=== PATIENT | female | born 1930 | race Hispanic/Latino ===

== ENCOUNTER 2017-08-18 12:52 | Emergency (ER) | payer MEDICARE, MEDICAID ==
[2017-08-18 13:22] VITALS: PULSE 74
[2017-08-18] MEDS ORDERED: Acetaminophen-Codeine 300/30 mg Tab PO STA (14:31)
[2017-08-18] MEDS ORDERED: Acetaminophen-Codeine 300/30 mg Tab PO ONE (14:48)
--- NOTE | 2017-08-18 15:11 | C.PDOC ---
History Of Present Illness 86 year old female presents to the ED for evaluation after she banged her foot and sustained an injury to her right foot one week ago. Patient has not yet been evaluated by her PMD. Patient states she lives alone and has trouble taking care of herself. She denies any other injuries and extremity numbness/ weakness at this time. Time Seen by Provider: 08/18/17 14:15 Chief Complaint (Nursing): Lower Extremity Problem/Injury History Per: Patient History/Exam Limitations: no limitations Onset/Duration Of Symptoms: Other (one week ) Current Symptoms Are (Timing): Still Present Additional History Per: Patient - Ankle/Foot Description Of Injury: Struck Against Object Past Medical History Reviewed: Historical Data, Nursing Documentation, Vital Signs Vital Signs: Last Vital Signs Temp 97.9 F 08/18/17 13:16 Pulse 74 08/18/17 13:16 Resp 18 08/18/17 13:16 BP 199/72 H 08/18/17 13:16 Pulse Ox 95 08/18/17 18:42 - Medical History PMH: Alzheimer's Disease, Arthritis, Diabetes, HTN Denies: Chronic Kidney Disease Surgical History: No Surg Hx Family History: States: Unknown Family Hx - Social History Hx Tobacco Use: No Hx Alcohol Use: No Hx Substance Use: No - Immunization History Hx Tetanus Toxoid Vaccination: No Hx Influenza Vaccination: Yes (2016) Hx Pneumococcal Vaccination: No Review Of Systems Musculoskeletal: Positive for: Foot Pain (right) Neurological: Negative for: Weakness, Numbness Physical Exam - Physical Exam Appears: Non-toxic, No Acute Distress Skin: Normal Color, Warm, Dry, Other (bed bugs present, excoriation wells noted. no cellulitis ) Extremity: Normal ROM, Tenderness (to first and second toes of right foot ), Capillary Refill (less than 2 seconds ), No Deformity, No Swelling Neurological/Psych: Oriented x3, Normal Speech, Normal Cognition Gait: Steady ED Course And Treatment - Laboratory Results Result Diagrams: 08/18/17 15:33 08/18/17 15:33 O2 Sat by Pulse Oximetry: 95 (on RA) Pulse Ox Interpretation: Normal Medical Decision Making Medical Decision Making: Assessment: foot injury, social issue Progress: Bloodwork, urinalysis, Right foot XR ordered and reviewed. Motrin PO and Tylenol/Codeine PO administered. On reassessment, patient is resting comfortably, showing no signs of distress and reports an improvement in symptoms. Patient's family member is present at bedside and states he will take her home. Patient will be discharged with diagnosis of contusion and bed bugs. Advised to f/u with PMD within 1-2 days for further evaluation. Disposition Counseled Patient/Family Regarding: Studies Performed, Diagnosis, Need For Followup, Rx Given - Disposition Referrals: Dilip Regalado MD [Staff Provider] - Disposition: HOME/ ROUTINE Disposition Time: 18:40 Condition: STABLE Additional Instructions: follow up with your doctor in 2 days call to make an appointment take medications as prescribed return to ER if symptoms worsens or progress Prescriptions: [place] 1% 1 appl TP ONCE #1 bottle Naproxen [Naprosyn] 500 mg PO BID PRN #16 tab PRN Reason: Pain, Moderate (4-7) Instructions: Contusion (DC), Bedbugs Forms: Gen Discharge Inst [place], [facility] ([place]), General Discharge Instructions, [facility] ([place]o) - Clinical Impression Clinical Impression: Contusion, Infestation by bed bug - Scribe Statement The provider has reviewed the documentation as recorded by the Scribe (Anne Franco) Provider Attestation: All medical record entries made by the Scribe were at my direction and personally dictated by me. I have reviewed the chart and agree that the record accurately reflects my personal performance of the history, physical exam, medical decision making, and the department course for this patient. I have also personally directed, reviewed, and agree with the discharge instructions and disposition.
[2017-08-18 15:39] LABS: BASO # 0.1 K/uL (0.0-0.2); BASO % 1.3 % (0.0-2.0); EOS # 0.4 K/uL (0.0-0.7); EOS % 5.4 % (0.0-4.0); HEMOGLOBIN 11.9 g/dL (11.0-16.0); LYMPH # 1.4 K/uL (1.0-4.3); MEAN CELL VOLUME 77.3 fL (81.0-99.0); MEAN CORPUSCULAR HEMOGLOBIN 25.3 pg (27.0-31.0); MEAN CORPUSCULAR HGB CONC 32.7 g/dL (33.0-37.0); MEAN PLATELET VOLUME 9.1 fL (7.2-11.7); MONO # 0.7 K/uL (0.0-0.8); MONO % 10.1 % (0.0-10.0); NEUT # 4.7 K/uL (1.8-7.0); NEUT % 64.2 % (50.0-75.0); RBC 4.7 Mil/uL (3.80-5.20); RED CELL DISTRIBUTION WIDTH 19.6 % (11.5-14.5); WHITE BLOOD COUNT 7.3 K/uL (4.8-10.8)
[2017-08-18 15:51] LABS: ALB/GLOB RATIO 1.1 (1.0-2.1); ALBUMIN 3.9 g/dL (3.5-5.0); CALCIUM 9.3 mg/dl (8.6-10.4)
--- NOTE | 2017-08-18 16:02 | RAD ---
PROCEDURE: Right Foot Radiographs. HISTORY: toe pain, 1st and 2nd COMPARISON: None. FINDINGS: BONES: There is diffuse bone demineralization. There is no acute displaced fracture or bone destruction. There is a prominent plantar calcaneal spur and dorsal calcaneal enthesophyte. JOINTS: Normal. SOFT TISSUES: Normal. OTHER FINDINGS: There are atherosclerotic vascular calcifications. IMPRESSION: No acute fracture or dislocation.
[2017-08-18 18:53] VITALS: BP 149/81; RESP 20; TEMP 97.5
[2017-08-21 10:52] VITALS: O2SAT 95
== END 2017-08-18 19:00 | disposition home or self-care (01) ==
LOC: C.ER 12:52
DX: S90.31XA Contusion of right foot, initial encounter (principal); W22.8XXA Striking against or struck by other objects, initial encounter; B88.8 Other specified infestations

== ENCOUNTER 2017-09-29 11:09 | Inpatient (IN) | payer MEDICARE, MEDICAID ==
[2017-09-29] MEDS ORDERED: Sodium Chloride 0.9% 500 ML IV ONE ×2 (13:09→14:04)
[2017-09-29] MEDS ORDERED: Cefepime 1 GM in Sodium Chloride 0.9% 50 ML IVPB STA (13:10)
[2017-09-29] MEDS ORDERED: Vancomycin 1 GM 1 GM/250 ML BAG IV STA ×2 (13:10→15:18)
[2017-09-29 13:31] LABS: BASO # 0.1 K/uL (0.0-0.2); BASO % 0.3 % (0.0-2.0); HEMOGLOBIN 12.6 g/dL (11.0-16.0); LYMPH # 0.8 K/uL (1.0-4.3); MEAN CELL VOLUME 79.7 fL (81.0-99.0); MEAN CORPUSCULAR HEMOGLOBIN 26.1 pg (27.0-31.0); MEAN CORPUSCULAR HGB CONC 32.7 g/dL (33.0-37.0); MEAN PLATELET VOLUME 9.9 fL (7.2-11.7); MONO # 1.2 K/uL (0.0-0.8); MONO % 7.5 % (0.0-10.0); NEUT # 14.6 K/uL (1.8-7.0); NEUT % 87.2 % (50.0-75.0); PLATELET COUNT 253 K/uL (130-400); RBC 4.85 Mil/uL (3.80-5.20); RED CELL DISTRIBUTION WIDTH 19.1 % (11.5-14.5); WHITE BLOOD COUNT 16.7 K/uL (4.8-10.8)
[2017-09-29 13:40] LABS: INR 1.1; PROTHROMBIN TIME 12.3 SECONDS (9.7-12.2)
[2017-09-29 13:52] LABS: ALB/GLOB RATIO 1.1 (1.0-2.1); ALBUMIN 4.4 g/dL (3.5-5.0); CALCIUM 9.5 mg/dl (8.6-10.4)
[2017-09-29 14:04] LABS: LYMPHOCYTE 5 % (20-40); MONOCYTE 7 % (0-10); NEUTROPHIL 88 % (50-75); PLATELET ESTIMATE NORMAL (NORMAL); TOTAL CELLS COUNTED 100
[2017-09-29] MEDS ORDERED: (Novolin R) Insulin Human Regular 100 units/ml vial IV ONE (14:04)
[2017-09-29 14:05] LABS: ANISOCYTOSIS SLIGHT; HYPOCHROMIC SLIGHT; POLYCHROMIC SLIGHT
--- NOTE | 2017-09-29 14:11 | C.PDOC ---
History Of Present Illness Patient BIBA for evaluation of left knee redness, swelling and pain after a fall. Patient is awake & alert, but disoriented to time. She thinks she fell when getting out of bed two days ago, but is unsure why or whether or not she has LOC/head injury. Time Seen by Provider: 09/29/17 13:03 Chief Complaint (Nursing): Lower Extremity Problem/Injury History Per: Patient, Other (EMS) History/Exam Limitations: other (AAOx2) Onset/Duration Of Symptoms: Unknown Current Symptoms Are (Timing): Still Present Severity: Moderate Past Medical History Reviewed: Historical Data, Nursing Documentation, Vital Signs Vital Signs: Last Vital Signs Temp 98.7 F 10/01/17 07:36 Pulse 97 H 10/01/17 07:36 Resp 20 10/01/17 07:36 BP 188/74 H 10/01/17 07:36 Pulse Ox 96 10/01/17 07:36 - Medical History PMH: Alzheimer's Disease, Arthritis, Diabetes, HTN Family History: States: No Known Family Hx - Social History Hx Tobacco Use: No Hx Alcohol Use: No Hx Substance Use: No - Immunization History Hx Tetanus Toxoid Vaccination: No Hx Influenza Vaccination: No Hx Pneumococcal Vaccination: No Review Of Systems Except As Marked, All Systems Reviewed And Found Negative. Cardiovascular: Negative for: Chest Pain Respiratory: Negative for: Shortness of Breath Gastrointestinal: Negative for: Nausea, Vomiting, Abdominal Pain Musculoskeletal: Positive for: Other (left knee pain, swelling, redness) Physical Exam - Physical Exam Appears: Well, Non-toxic, No Acute Distress Skin: Other (see extremity exam) Head: Atraumatic, Normacephalic Eye(s): bilateral: Normal Inspection, PERRL, EOMI Oral Mucosa: Dry Neck: Normal, Normal ROM, No Midline Cervical Tenderness, No Paracervical Tenderness, No Step Off Deformity, Supple Cardiovascular: Rhythm Regular Respiratory: Normal Breath Sounds, No Rales, No Rhonchi, No Wheezing Gastrointestinal/Abdominal: Normal Exam, Bowel Sounds, Soft, No Tenderness Extremity: Tenderness (left knee moderate swelling, diffuse erythema/cellulitis , scattered abrasions, (+) TTP, no calf tenderness), No Calf Tenderness, Swelling Pulses: Left Dorsalis Pedis: Normal, Right Dorsalis Pedis: Normal Neurological/Psych: Normal Motor, Normal Sensation, Other (awake, alert, AAOx2 ( disoriented to time)) ED Course And Treatment - Laboratory Results Result Diagrams: 10/01/17 08:12 10/01/17 08:12 ECG: Interpreted By Me, Viewed By Me (NSR 98 bpm, normal axis, no acute ST/T wave changes) ECG Interpretation: Normal O2 Sat by Pulse Oximetry: 98 (RA) Pulse Ox Interpretation: Normal - Other Rad left knee xray X-Ray: Interpreted by Me, Viewed By Me (soft tissue swelling, no fracture/ dislocation) - CT Scan/US CT HEAD Other Rad Studies (CT/US): Read By Radiologist, Radiology Report Reviewed CT/US Interpretation: Accession No. : [id number]. Patient Name / ID : DANE CALLAWAY / [id number]. Exam Date : 09/29/2017 14:32:14 ( Approved ). Study Comment : Sex / Age : F / 87Y. Creator : Emma Valencia. Dictator : Alexandria Villarreal MD. Patient Experience Coordinator : Manager Truck : Alexandria Villarreal MD. Approver2 : Report Date : 09/29/2017 14:38:28. My Comment : . PROCEDURE: CT HEAD WITHOUT CONTRAST. HISTORY: Altered mental status, s/p fall. COMPARISON: 10/20/2014. TECHNIQUE: Axial computed tomography images were obtained through the head/brain without intravenous contrast. Radiation dose: Total exam DLP = 760.46 MGy-cm. This CT exam was performed using one or more of the following dose reduction techniques: Automated exposure control, adjustment of the mA and/or kV according to patient size, and/or use of iterative reconstruction technique. FINDINGS: HEMORRHAGE: No intracranial hemorrhage. BRAIN: There are mild chronic microangiopathic changes. There is no mass, mass effect or abnormal extra-axial fluid collection. VENTRICLES: There is moderate age-related global parenchymal volume loss and proportionate enlargement of the ventricles and cortical sulci. CALVARIUM: The skull base and calvarium are normal. PARANASAL SINUSES: Predominantly clear. MASTOID AIR CELLS: Predominantly clear. OTHER FINDINGS: None. IMPRESSION: No acute intracranial abnormality. Mild chronic microangiopathic changes and moderate age-related global parenchymal volume loss. Progress Note: Blood work, Xrays of left knee and chest, CT head, UA ordered and reviewed. Patient given IV NS bolus, IV Vancomycin and IV Cefepime for cellulitis, IV insulin for hyperglycemia. Spoke with Dr. Begum, agrees with admission to his service for left leg cellulitis, poorly controlled DM. - Physician Consult Information Physician Contacted: Dilip Regalado Outcome Of Conversation: Spoke with PMD, confirms this is his patient, will admit to Dr. Begum (covers his service now). Disposition - Disposition Disposition: HOSPITALIZED Disposition Time: 15:28 Condition: STABLE - Clinical Impression Clinical Impression: Cellulitis of left knee, Recurrent falls, Uncontrolled diabetes mellitus, Leukocytosis Decision To Admit - Pt Status Changed To: Hospital Disposition Of: Inpatient - Admit Certification Admit to Inpatient:: After my assessment, the patient will require hospitalization for at least two midnights. This is because of the severity of symptoms shown, intensity of services needed, and/or the medical risk in this patient being treated as an outpatient. - InPatient: Physician Admission Certification: I certify that this patient requires 2 or more midnights of care for the following reason:: see notes - . Bed Request Type: Regular Admitting Physician: Shaun Begum Patient Diagnosis: Left leg cellulitis, Uncontrolled diabetes mellitus
[2017-09-29 14:17] LABS: URINE BACTERIA MANY (<OCC); URINE BILIRUBIN NEGATIVE (NEGATIVE); URINE BLOOD 2+ (NEGATIVE); URINE CLARITY Clear (Clear); URINE COLOR Yellow (YELLOW); URINE GLUCOSE (UA) 3+ mg/dL (Normal); URINE LEUKOCYTE ESTERASE NEG Leu/uL (Negative); URINE PROTEIN 2+ mg/dL (NEGATIVE); URINE UROBILINOGEN NORMAL mg/dL (0.2-1.0)
[2017-09-29] MEDS ORDERED: Sodium Chloride 0.9% 1,000 ML ONE (14:22)
[2017-09-29] MEDS ORDERED: Cefepime 1 GM in Sodium Chloride 0.9% 100 ML IVPB STA (14:22)
[2017-09-29] MEDS ORDERED: (Novolin R) Insulin Human Regular 100 units/ml vial ONE (14:23)
--- NOTE | 2017-09-29 14:34 | RAD ---
PROCEDURE: CHEST RADIOGRAPH, 1 VIEW HISTORY: admission COMPARISON: None available. FINDINGS: LUNGS: The lungs are well inflated and clear. There are chronic changes in the lungs. PLEURA: No pneumothorax or pleural fluid seen. CARDIOVASCULAR: Normal. OSSEOUS STRUCTURES: No significant abnormalities. VISUALIZED UPPER ABDOMEN: Normal. OTHER FINDINGS: None. IMPRESSION: No active pulmonary disease.
--- NOTE | 2017-09-29 14:36 | RAD ---
PROCEDURE: Left Knee Radiographs. HISTORY: Pain. COMPARISON: None. FINDINGS: BONES: There is diffuse bone demineralization. There is no acute displaced fracture or bone destruction. JOINTS: There is mild tricompartmental degenerative osteoarthrosis with reduced joint spaces, marginal spurring and tibial spiking, worse in the medial compartment. JOINT EFFUSION: There is a small suprapatellar joint effusion. OTHER FINDINGS: There is moderate prepatellar soft tissue swelling. There are atherosclerotic vascular calcifications. IMPRESSION: No acute fracture or dislocation. Mild tricompartmental degenerative osteoarthrosis, worse in the medial compartment and small suprapatellar joint effusion. Moderate prepatellar soft tissue swelling.
[2017-09-29] MEDS ORDERED: Vancomycin 1 gm/NS 200 ml 1 GM/200 ML BAG IVPB STA (15:18)
--- NOTE | 2017-09-29 15:18 | CT ---
PROCEDURE: CT HEAD WITHOUT CONTRAST. HISTORY: Altered mental status, s/p fall COMPARISON: 10/20/2014. TECHNIQUE: Axial computed tomography images were obtained through the head/brain without intravenous contrast. Radiation dose: Total exam DLP = 760.46 MGy-cm. This CT exam was performed using one or more of the following dose reduction techniques: Automated exposure control, adjustment of the mA and/or kV according to patient size, and/or use of iterative reconstruction technique. FINDINGS: HEMORRHAGE: No intracranial hemorrhage. BRAIN: There are mild chronic microangiopathic changes. There is no mass, mass effect or abnormal extra-axial fluid collection. VENTRICLES: There is moderate age-related global parenchymal volume loss and proportionate enlargement of the ventricles and cortical sulci. CALVARIUM: The skull base and calvarium are normal. PARANASAL SINUSES: Predominantly clear. MASTOID AIR CELLS: Predominantly clear. OTHER FINDINGS: None. IMPRESSION: No acute intracranial abnormality. Mild chronic microangiopathic changes and moderate age-related global parenchymal volume loss.
[2017-09-29] MEDS ORDERED: (Novolog) Insulin Aspart, Recombinant 100 u/ml 10 ml vial SC SCH (16:30)
[2017-09-29] MEDS ORDERED: (Novolog) Insulin Aspart, Recombinant 100 u/ml 10 ml vial ONE (16:55)
[2017-09-29] MEDS ORDERED: Enoxaparin 40 mg Syringe ONE (16:55)
[2017-09-29] MEDS: Enoxaparin 40 mg Syringe SC SCH (16:57)
[2017-09-29] MEDS: (Novolog) Insulin Aspart, Recombinant 100 u/ml 10 ml vial SC SCH (22:18)
[2017-09-29] MEDS ORDERED: ceFAZolin 1 GM in Sodium Chloride 0.9% 100 ML IVPB SCH (23:00)
[2017-09-30] MEDS ORDERED: ceFAZolin 1 GM in Sodium Chloride 0.9% 100 ML IVPB SCH
--- NOTE | 2017-09-30 00:16 | CP.PCM.HP ---
History of Present Illness - History of Present Illness History of Present Illness: 87 years old female felt out of bed 2 days ago and sustained a swollen and painful left knee. She is unsure whether she passed out or not. In the ED, she was found to have a leucocytosis and a blood glucose more than 400 mg%. She is known to have a DM, a HPTN, No other medical history could be obtained from the patient. CT scan of the head did not show any cerebral hemorrhage. Xray of the left revealed soft tissue swelling, no fracture, no dislocation. Present on Admission - Present on Admission Any Indicators Present on Admission: No Review of Systems - Musculoskeletal Additional comments: Swollen, erythematous and tender left knee. Past Patient History - Tetanus Immunizations Tetanus Immunization: Unknown - Past Medical History & Family History Past Medical History?: Yes - Past Social History Smoking Status: Never Smoked Alcohol: None Drugs: Denies - CARDIAC Hx Cardiac Disorders: Yes Hx Hypertension: Yes - PULMONARY Hx Respiratory Disorders: No - NEUROLOGICAL Hx Neurological Disorder: Yes Hx Alzheimer's Disease: Yes - HEENT Hx HEENT Problems: Yes Hx Blind: Yes (Legally Blind) - RENAL Hx Chronic Kidney Disease: No - ENDOCRINE/METABOLIC Hx Endocrine Disorders: Yes Hx Diabetes Mellitus Type 2: Yes - HEMATOLOGICAL/ONCOLOGICAL Hx Blood Disorders: No - INTEGUMENTARY Hx Dermatological Problems: No Other/Comment: left knee swollen and red - MUSCULOSKELETAL/RHEUMATOLOGICAL Hx Musculoskeletal Disorders: Yes Hx Falls: Yes (RECURRENT FALL AT HOME) - GASTROINTESTINAL Hx Gastrointestinal Disorders: No Other/Comment: problem with stomach - GENITOURINARY/GYNECOLOGICAL Hx Genitourinary Disorders: No Hx Incontinence: Yes - PSYCHIATRIC Hx Psychophysiologic Disorder: No Hx Substance Use: No - SURGICAL HISTORY Hx Surgeries: Yes Other/Comment: Cyst in the Ovary removed - 2008 - ANESTHESIA Hx Anesthesia: Yes Hx Anesthesia Reactions: No Hx Malignant Hyperthermia: No Has any member of the family had a problem w/ anesthesia?: No Meds Allergies/Adverse Reactions: Allergies Allergy/AdvReac Type Severity Reaction Status Date / Time No Known Allergies Allergy Verified 03/12/16 11:18 Physical Exam - Constitutional Appears: No Acute Distress - Head Exam Head Exam: NORMAL INSPECTION - Eye Exam Eye Exam: Normal appearance - ENT Exam ENT Exam: Normal Exam - Neck Exam Neck exam: Positive for: Normal Inspection - Respiratory Exam Respiratory Exam: Clear to Auscultation Bilateral, NORMAL BREATHING PATTERN - Cardiovascular Exam Cardiovascular Exam: REGULAR RHYTHM - GI/Abdominal Exam GI & Abdominal Exam: Normal Bowel Sounds, Soft - Rectal Exam Rectal Exam: Deferred - Extremities Exam Additional comments: Tender, erythematous and swollen left knee. - Back Exam Back exam: NORMAL INSPECTION - Neurological Exam Neurological exam: Alert, Oriented x3 - Psychiatric Exam Psychiatric exam: Anxious Results - Vital Signs Recent Vital Signs: Last Vital Signs Temp 98.9 F 09/29/17 17:58 Pulse 81 09/29/17 17:58 Resp 20 09/29/17 17:58 BP 159/68 H 09/29/17 17:58 Pulse Ox 97 09/29/17 17:58 - Labs Result Diagrams: 09/29/17 13:27 09/29/17 13:27 Labs: Laboratory Results - last 24 hr 09/29/17 09/29/17 09/29/17 11:37 11:40 13:27 WBC 16.7 H D RBC 4.85 Hgb 12.6 Hct 38.7 MCV 79.7 L D MCH 26.1 L MCHC 32.7 L RDW 19.1 H Plt Count 253 MPV 9.9 Neut % (Auto) 87.2 H Lymph % (Auto) 5.0 L [place] % (Auto) 7.5 Eos % (Auto) 0.0 Baso % (Auto) 0.3 Neut # (Auto) 14.6 H Lymph # (Auto) 0.8 L [place] # (Auto) 1.2 H Eos # (Auto) 0.0 Baso # (Auto) 0.1 Neutrophils % (Manual) 88 H Lymphocytes % (Manual) 5 L Monocytes % (Manual) 7 Platelet Estimate Normal Polychromasia Slight Hypochromasia (manual) Slight Anisocytosis (manual) Slight PT INR APTT Sodium Potassium Chloride Carbon Dioxide Anion Gap BUN Creatinine Est GFR ( Amer) Est GFR (Non-Af Amer) POC Glucose (mg/dL) 454 H* 463 H* Random Glucose Calcium Total Bilirubin AST ALT Alkaline Phosphatase Total Protein Albumin Globulin Albumin/Globulin Ratio Urine Color Urine Clarity Urine pH Ur Specific [place] Urine Protein Urine Glucose (UA) Urine Ketones Urine Blood Urine Nitrate Urine Bilirubin Urine Urobilinogen Ur Leukocyte Esterase Urine WBC (Auto) Urine RBC (Auto) Urine Bacteria 09/29/17 09/29/17 09/29/17 13:27 13:27 14:04 WBC RBC Hgb Hct MCV MCH MCHC RDW Plt Count MPV Neut % (Auto) Lymph % (Auto) [place] % (Auto) Eos % (Auto) Baso % (Auto) Neut # (Auto) Lymph # (Auto) [place] # (Auto) Eos # (Auto) Baso # (Auto) Neutrophils % (Manual) Lymphocytes % (Manual) Monocytes % (Manual) Platelet Estimate Polychromasia Hypochromasia (manual) Anisocytosis (manual) PT 12.3 H INR 1.1 APTT 33 Sodium 136 Potassium 4.1 Chloride 90 L Carbon Dioxide 26 Anion Gap 23 H BUN 25 H Creatinine 1.2 Est GFR ( Amer) 52 Est GFR (Non-Af Amer) 43 POC Glucose (mg/dL) Random Glucose 472 H* D Calcium 9.5 Total Bilirubin 0.8 AST 28 ALT 10 Alkaline Phosphatase 78 Total Protein 8.5 H Albumin 4.4 Globulin 4.1 H Albumin/Globulin Ratio 1.1 Urine Color Yellow Urine Clarity Clear Urine pH 5.0 Ur Specific [place] 1.024 Urine Protein 2+ H Urine Glucose (UA) 3+ H Urine Ketones 1+ H Urine Blood 2+ H Urine Nitrate Negative Urine Bilirubin Negative Urine Urobilinogen Normal Ur Leukocyte Esterase Neg Urine WBC (Auto) 3 Urine RBC (Auto) 6 H Urine Bacteria Many H 09/29/17 09/29/17 09/29/17 16:03 18:02 21:08 WBC RBC Hgb Hct MCV MCH MCHC RDW Plt Count MPV Neut % (Auto) Lymph % (Auto) [place] % (Auto) Eos % (Auto) Baso % (Auto) Neut # (Auto) Lymph # (Auto) [place] # (Auto) Eos # (Auto) Baso # (Auto) Neutrophils % (Manual) Lymphocytes % (Manual) Monocytes % (Manual) Platelet Estimate Polychromasia Hypochromasia (manual) Anisocytosis (manual) PT INR APTT Sodium Potassium Chloride Carbon Dioxide Anion Gap BUN Creatinine Est GFR ( Amer) Est GFR (Non-Af Amer) POC Glucose (mg/dL) 338 H 280 H 227 H Random Glucose Calcium Total Bilirubin AST ALT Alkaline Phosphatase Total Protein Albumin Globulin Albumin/Globulin Ratio Urine Color Urine Clarity Urine pH Ur Specific [place] Urine Protein Urine Glucose (UA) Urine Ketones Urine Blood Urine Nitrate Urine Bilirubin Urine Urobilinogen Ur Leukocyte Esterase Urine WBC (Auto) Urine RBC (Auto) Urine Bacteria Assessment & Plan (1) Cellulitis of knee, left Assessment and Plan: Patient was started on IV Vancomycin and Cefepime in the ED. Status: Acute (2) Uncontrolled diabetes mellitus Assessment and Plan: To control blood glucose with Insulin Aspartate according to Accucheck results. Status: Acute (3) Uncontrolled hypertension Assessment and Plan: To start Losartan 50 mg PO qd. Status: Acute (4) Fall Status: Acute (5) Contusion of knee, left Status: Acute Decision To Admit - Pt Status Changed To: Hospital Disposition Of: Inpatient - Admit Certification Admit to Inpatient:: After my assessment, the patient will require hospitalization for at least two midnights. This is because of the severity of symptoms shown, intensity of services needed, and/or the medical risk in this patient being treated as an outpatient. - InPatient: Physician Admission Certification:: After my assessments, the patient requires hospitalization for at 2 midnights. - . Bed Request Type: Regular Admitting Physician: Shaun Begum
[2017-09-30] MEDS: ceFAZolin 2 GM in Sodium Chloride 0.9% 100 ML IVPB SCH ×2 (05:13→13:27)
[2017-09-30 07:33] LABS: BASO # 0.1 K/uL (0.0-0.2); BASO % 0.5 % (0.0-2.0); EOS % 0.3 % (0.0-4.0); HEMOGLOBIN 11.3 g/dL (11.0-16.0); LYMPH # 1.2 K/uL (1.0-4.3); LYMPH % 8.6 % (20.0-40.0); MEAN CELL VOLUME 79.3 fL (81.0-99.0); MEAN CORPUSCULAR HEMOGLOBIN 26.1 pg (27.0-31.0); MEAN CORPUSCULAR HGB CONC 32.9 g/dL (33.0-37.0); MEAN PLATELET VOLUME 9.5 fL (7.2-11.7); MONO # 1.2 K/uL (0.0-0.8); MONO % 8.4 % (0.0-10.0); NEUT % 82.2 % (50.0-75.0); NRBC % 0.1 % (0.0-2.0); PLATELET COUNT 217 K/uL (130-400); RBC 4.32 Mil/uL (3.80-5.20); RED CELL DISTRIBUTION WIDTH 18.7 % (11.5-14.5); WHITE BLOOD COUNT 14.6 K/uL (4.8-10.8)
[2017-09-30] MEDS: (Novolog) Insulin Aspart, Recombinant 100 u/ml 10 ml vial SC SCH ×3 (08:23→16:30)
[2017-09-30 08:46] LABS: ANISOCYTOSIS SLIGHT; BASOPHIL 1 % (0-2); HYPOCHROMIC SLIGHT; LYMPHOCYTE 6 % (20-40); MONOCYTE 9 % (0-10); NEUTROPHIL 84 % (50-75); PLATELET ESTIMATE NORMAL (NORMAL); POIKILOCYTOSIS SLIGHT; TOTAL CELLS COUNTED 100
[2017-09-30 08:47] LABS: LARGE PLATELETS PRESENT; OVALOCYTES SLIGHT; TARGET CELLS SLIGHT
[2017-09-30] MEDS: Vancomycin 1 gm/NS 200 ml 1 GM/200 ML BAG IVPB SCH (09:51)
[2017-09-30] MEDS: Enoxaparin 40 mg Syringe SC SCH (09:52)
--- NOTE | 2017-09-30 11:36 | CP.PCM.CON ---
History of Present Illness - History of Present Illness History of Present Illness: Patient BIBA for evaluation of left knee redness, swelling and pain after a fall. Patient is awake & alert, but disoriented to time. She thinks she fell when getting out of bed two days ago, but is unsure why or whether or not she has LOC/head injury. fell at home injuring left knee - severe painful swelling r/o abscess r/o septic joint IV rx in progress Needs imaging elizabeth as well as ortho eval add ancef to [facility] - Medical History PMH: Alzheimer's Disease, Arthritis, Diabetes, HTN Family History: States: No Known Family Hx Review of Systems - Constitutional Constitutional: As Per HPI - EENT Eyes: absent: As Per HPI, Blind Spots, Blurred Vision, Change in Vision, Decreased Night Vision, Diplopia, Discharge, Dry Eye, Exophthalmos, Floaters, Irritation, Itchy Eyes, Loss of Peripheral Vision, Pain, Photophobia, Requires Corrective Lenses, Sees Flashes, Spots in Vision, Tunnel Vision, Other Visual Disturbances, Loss of Vision, Other Ears: absent: As Per HPI, Decreased Hearing, Ear Discharge, Ear Pain, Tinnitus, Abnormal Hearing, Disequilibrium, Dizziness, Other Nose/Mouth/Throat: absent: As Per HPI, Epistaxis, Nasal Congestion, Nasal Discharge, Nasal Obstruction, Nasal Trauma, Nose Pain, Post Nasal Drip, Sinus Pain, Sinus Pressure, Bleeding Gums, Change in Voice, Dental Pain, Dry Mouth, Dysphagia, Halitosis, Hoarsness, Lip Swelling, Mouth Lesions, Mouth Pain, Odynophagia, Sore Throat, Throat Swelling, Tongue Swelling, Facial Pain, Neck Pain, Neck Mass, Other - Breasts Breasts: absent: As Per HPI, Change in Shape, Mass, Pain, Nipple Discharge, Nipple Inversion, Skin Changes, Swelling, Other - Cardiovascular Cardiovascular: absent: As Per HPI, Acrocyanosis, Chest Pain, Chest Pain at Rest , Chest Pain with Activity, Claudication, Diaphoresis, Dyspnea, Dyspnea on Exertion, Edema, Irregular Heart Rhythm, Pain Radiating to Arm/Neck/Jaw, Leg Edema, Leg Ulcers, Lightheadedness, Orthopnea, Palpitations, Paroxysmal Nocturnal Dyspnea, Pedal Edema, Radiating Pain, Rapid Heart Rate, Slow Heart Rate, Syncope, Other - Respiratory Respiratory: absent: As Per HPI, Cough, Dyspnea, Hemoptysis, Dyspnea on Exertion , Wheezing, Snoring, Stridor, Pain on Inspiration, Chest Congestion, Excessive Mucous Production, Change in Mucous Color, Pain with Coughing, Other - Gastrointestinal Gastrointestinal: absent: As Per HPI, Abdominal Pain, Belching, Bloating, Change in Bowel Habits, Change in Stool Character, Coffee Ground Emesis, Constipation, Cramping, Diarrhea, Dyspepsia, Dysphagia, Early Satiety, Excessive Flatus, Fecal Incontinence, Heartburn, Hematemesis, Hematochezia, Loose Stools, Melena, Nausea, Odynophagia, Temesmus, Vomiting, Other - Genitourinary Genitourinary: absent: As Per HPI, Change in Urinary Stream, Difficulty Urinating, Dysuria, Flank Pain, Hematuria, Pyuria, Nocturia, Urinary Incontinence, Urinary Frequency, Urinary Hesitance, Urinary Urgency, Voiding Freq/Small Amts, Freq UTI, Hx Renal/Bladder Calculi, Hx /Renal Surgery, Bladder Distension, Other - Reproductive: Female Reproductive:Female: absent: As Per HPI, Amenorrhea, Amenorrhea/ Control, Currently Menstual, Cycle <21 Days, Cycle >35 Days, Cycle Variable, Menses 1-7 Days, Menses >/= 8 Days, Menses Variable, Cycle > 4 Weeks Between, No Menses for 6 Months, Heavy Menses, Light Menses, Normal Menses, Spotting Between Cycles , S/P Hysterectomy, Menopausal, Post Menopausal, Premenarche, Abnormal Vaginal Bleeding, Dysmenorrhea, Dyspareunia, Genital Lesions, Genital Pruritis, Pelvic Pain, Prolapse Symptoms, Sexual Dysfunction, Vaginal Discharge, Vaginal Dryness , Vaginal Odor, Vaginal Pruritis, Other - Menstruation Menstruation: absent: As Per HPI, Amenorrhea, Amenorrhea/ Control, Currently Menstual, Cycle <21 Days, Cycle >35 Days, Cycle Variable, Menses 1-7 Days, Menses >/= 8 Days, Menses Variable, Cycle > 4 Weeks Between, No Menses for 6 Months, Heavy Menses, Light Menses, Normal Menses, Spotting Between Cycles , S/P Hysterectomy, Menopausal, Post Menopausal, Premenarche, Abnormal Vaginal Bleeding, Dysmenorrhea, Other - Musculoskeletal Musculoskeletal: As Per HPI - Integumentary Integumentary: As Per HPI, Skin Pain, Swelling, Wounds - Neurological Neurological: absent: As Per HPI, Abnormal Gait, Abnormal Hearing, Abnormal Movements, Abnormal Speech, Behavioral Changes, Burning Sensations, Confusion, Convulsions, Disequilibrium, Dizziness, Numbness, Focal Weakness, Frequent Falls , Headaches, Lack of Coordination, Loss of Vision, Memory Loss, Paresthesias, Radicular Pain, Restless Legs, Sensory Deficit, Syncope, Tingling, Tremor, Vertigo, Weakness, Other Visual Disturbances, Other - Psychiatric Psychiatric: absent: As Per HPI, Abnormal Sleep Pattern, Anhedonia, Anxiety, Auditory Hallucinations, Behavioral Changes, Change in Appetite, Change in Libido, Confusion, Depression, Difficulty Concentrating, Hallucinations, Homicidal Ideation, Hopelessness, Irritability, Memory Loss, Mood Swings, Panic Attacks, Paranoia, Suicidal Ideation, Visual Hallucinations, Tactile Hallucinations, Other - Endocrine Endocrine: absent: As Per HPI, Change in Body Appearance, Change in Libido, Cold Intolorance, Deepening of Voice, Excessive Sweating, Fatigue, Flushing, Heat Intolorance, Increase in Ring/Shoe/Hat Size, Palpitations, Polydipsia, Polyphagia, Polyuria, Other - Hematologic/Lymphatic Hematologic: absent: As Per HPI, Easy Bleeding, Easy Bruising, Lymphadenopathy, Other Past Patient History - Tetanus Immunizations Tetanus Immunization: Unknown - Past Medical History & Family History Past Medical History?: Yes - Past Social History Smoking Status: Never Smoked Alcohol: None Drugs: Denies - CARDIAC Hx Cardiac Disorders: Yes Hx Hypertension: Yes - PULMONARY Hx Respiratory Disorders: No - NEUROLOGICAL Hx Neurological Disorder: Yes Hx Alzheimer's Disease: Yes - HEENT Hx HEENT Problems: Yes Hx Blind: Yes (Legally Blind) - RENAL Hx Chronic Kidney Disease: No - ENDOCRINE/METABOLIC Hx Endocrine Disorders: Yes Hx Diabetes Mellitus Type 2: Yes - HEMATOLOGICAL/ONCOLOGICAL Hx Blood Disorders: No - INTEGUMENTARY Hx Dermatological Problems: No Other/Comment: left knee swollen and red - MUSCULOSKELETAL/RHEUMATOLOGICAL Hx Musculoskeletal Disorders: Yes Hx Falls: Yes (RECURRENT FALL AT HOME) - GASTROINTESTINAL Hx Gastrointestinal Disorders: No Other/Comment: problem with stomach - GENITOURINARY/GYNECOLOGICAL Hx Genitourinary Disorders: No Hx Incontinence: Yes - PSYCHIATRIC Hx Psychophysiologic Disorder: No Hx Substance Use: No - SURGICAL HISTORY Hx Surgeries: Yes Other/Comment: Cyst in the Ovary removed - 2008 - ANESTHESIA Hx Anesthesia: Yes Hx Anesthesia Reactions: No Hx Malignant Hyperthermia: No Has any member of the family had a problem w/ anesthesia?: No Meds Allergies/Adverse Reactions: Allergies Allergy/AdvReac Type Severity Reaction Status Date / Time No Known Allergies Allergy Verified 03/12/16 11:18 - Medications Medications: Current Medications Acetaminophen (Tylenol 325mg Tab) 650 mg PO Q6 PRN PRN Reason: Pain, moderate (4-7) Last Admin: 09/30/17 08:22 Dose: 650 mg Docusate Sodium (Colace) 100 mg PO BID [facility] Last Admin: 09/30/17 09:52 Dose: 100 mg Enoxaparin Sodium (Lovenox) 40 mg SC DAILY [facility] Last Admin: 09/30/17 09:52 Dose: 40 mg Hydromorphone HCl (Dilaudid) 0.5 mg IVP Q4H PRN PRN Reason: Pain, severe (8-10) Vancomycin/Sodium Chloride (Vancomycin 1 Gm/Ns 200 Ml) 1 gm in 200 mls @ 133 mls/hr IVPB Q24H PUJA PRN Reason: Protocol Stop: 10/05/17 10:01 Last Admin: 09/30/17 09:51 Dose: 133 mls/hr Cefazolin Sodium 2 gm/ Sodium (Chloride) 100 mls @ 100 mls/hr IVPB Q8 PUJA PRN Reason: Protocol Last Admin: 09/30/17 05:13 Dose: 100 mls/hr Insulin Aspart (Novolog) 0 unit SC ACHS PUJA PRN Reason: Protocol Last Admin: 09/30/17 08:23 Dose: 4 unit Losartan Potassium (Cozaar) 50 mg PO DAILY [facility] Last Admin: 09/30/17 09:52 Dose: 50 mg Pneumococcal Polyvalent Vaccine (Pneumovax 23 Vaccine) 0.5 ml IM .ONCE ONE Stop: 10/02/17 10:01 Physical Exam - Constitutional Appears: Non-toxic, Chronically Ill - Head Exam Head Exam: NORMOCEPHALIC - Eye Exam Eye Exam: PERRL - ENT Exam ENT Exam: Mucous Membranes Dry, Normal External Ear Exam - Neck Exam Neck exam: Negative for: Lymphadenopathy - Respiratory Exam Respiratory Exam: Decreased Breath Sounds - Cardiovascular Exam Cardiovascular Exam: REGULAR RHYTHM - GI/Abdominal Exam GI & Abdominal Exam: Diminished Bowel Sounds, Soft. absent: Tenderness - Rectal Exam Rectal Exam: Deferred - Exam Exam: NORMAL INSPECTION - Extremities Exam Extremities exam: Positive for: joint swelling, pedal edema, tenderness. Negative for: calf tenderness, normal inspection, pedal pulses present Additional comments: redness and swelling left knee with possibla abscess - Back Exam Back exam: absent: CVA tenderness (L), CVA tenderness (R) - Neurological Exam Neurological exam: Alert, CN II-XII Intact, Oriented x3, Reflexes Normal - Psychiatric Exam Psychiatric exam: Depressed - Skin Skin Exam: Dry Results - Vital Signs Recent Vital Signs: Last Vital Signs Temp 98.6 F 09/30/17 08:00 Pulse 87 09/30/17 08:00 Resp 20 09/30/17 08:00 BP 167/72 H 09/30/17 08:00 Pulse Ox 96 09/30/17 08:00 - Labs Result Diagrams: 10/01/17 08:12 10/01/17 08:12 Labs: Laboratory Results - last 24 hr 09/29/17 09/29/17 09/29/17 11:37 11:40 13:27 WBC 16.7 H D RBC 4.85 Hgb 12.6 Hct 38.7 MCV 79.7 L D MCH 26.1 L MCHC 32.7 L RDW 19.1 H Plt Count 253 MPV 9.9 Neut % (Auto) 87.2 H Lymph % (Auto) 5.0 L [place] % (Auto) 7.5 Eos % (Auto) 0.0 Baso % (Auto) 0.3 Neut # (Auto) 14.6 H Lymph # (Auto) 0.8 L [place] # (Auto) 1.2 H Eos # (Auto) 0.0 Baso # (Auto) 0.1 Neutrophils % (Manual) 88 H Lymphocytes % (Manual) 5 L Monocytes % (Manual) 7 Basophils % (Manual) Platelet Estimate Normal Large Platelets Polychromasia Slight Hypochromasia (manual) Slight Poikilocytosis (manual Anisocytosis (manual) Slight Target Cells Ovalocytes PT INR APTT Sodium Potassium Chloride Carbon Dioxide Anion Gap BUN Creatinine Est GFR ( Amer) Est GFR (Non-Af Amer) POC Glucose (mg/dL) 454 H* 463 H* Random Glucose Hemoglobin A1c Calcium Total Bilirubin AST ALT Alkaline Phosphatase Total Protein Albumin Globulin Albumin/Globulin Ratio Urine Color Urine Clarity Urine pH Ur Specific [place] Urine Protein Urine Glucose (UA) Urine Ketones Urine Blood Urine Nitrate Urine Bilirubin Urine Urobilinogen Ur Leukocyte Esterase Urine WBC (Auto) Urine RBC (Auto) Urine Bacteria 09/29/17 09/29/17 09/29/17 13:27 13:27 14:04 WBC RBC Hgb Hct MCV MCH MCHC RDW Plt Count MPV Neut % (Auto) Lymph % (Auto) [place] % (Auto) Eos % (Auto) Baso % (Auto) Neut # (Auto) Lymph # (Auto) [place] # (Auto) Eos # (Auto) Baso # (Auto) Neutrophils % (Manual) Lymphocytes % (Manual) Monocytes % (Manual) Basophils % (Manual) Platelet Estimate Large Platelets Polychromasia Hypochromasia (manual) Poikilocytosis (manual Anisocytosis (manual) Target Cells Ovalocytes PT 12.3 H INR 1.1 APTT 33 Sodium 136 Potassium 4.1 Chloride 90 L Carbon Dioxide 26 Anion Gap 23 H BUN 25 H Creatinine 1.2 Est GFR ( Amer) 52 Est GFR (Non-Af Amer) 43 POC Glucose (mg/dL) Random Glucose 472 H* D Hemoglobin A1c Calcium 9.5 Total Bilirubin 0.8 AST 28 ALT 10 Alkaline Phosphatase 78 Total Protein 8.5 H Albumin 4.4 Globulin 4.1 H Albumin/Globulin Ratio 1.1 Urine Color Yellow Urine Clarity Clear Urine pH 5.0 Ur Specific [place] 1.024 Urine Protein 2+ H Urine Glucose (UA) 3+ H Urine Ketones 1+ H Urine Blood 2+ H Urine Nitrate Negative Urine Bilirubin Negative Urine Urobilinogen Normal Ur Leukocyte Esterase Neg Urine WBC (Auto) 3 Urine RBC (Auto) 6 H Urine Bacteria Many H 09/29/17 09/29/17 09/29/17 16:03 18:02 21:08 WBC RBC Hgb Hct MCV MCH MCHC RDW Plt Count MPV Neut % (Auto) Lymph % (Auto) [place] % (Auto) Eos % (Auto) Baso % (Auto) Neut # (Auto) Lymph # (Auto) [place] # (Auto) Eos # (Auto) Baso # (Auto) Neutrophils % (Manual) Lymphocytes % (Manual) Monocytes % (Manual) Basophils % (Manual) Platelet Estimate Large Platelets Polychromasia Hypochromasia (manual) Poikilocytosis (manual Anisocytosis (manual) Target Cells Ovalocytes PT INR APTT Sodium Potassium Chloride Carbon Dioxide Anion Gap BUN Creatinine Est GFR ( Amer) Est GFR (Non-Af Amer) POC Glucose (mg/dL) 338 H 280 H 227 H Random Glucose Hemoglobin A1c Calcium Total Bilirubin AST ALT Alkaline Phosphatase Total Protein Albumin Globulin Albumin/Globulin Ratio Urine Color Urine Clarity Urine pH Ur Specific [place] Urine Protein Urine Glucose (UA) Urine Ketones Urine Blood Urine Nitrate Urine Bilirubin Urine Urobilinogen Ur Leukocyte Esterase Urine WBC (Auto) Urine RBC (Auto) Urine Bacteria 09/30/17 09/30/17 09/30/17 07:02 07:02 07:03 WBC 14.6 H RBC 4.32 Hgb 11.3 Hct 34.2 MCV 79.3 L MCH 26.1 L MCHC 32.9 L RDW 18.7 H Plt Count 217 MPV 9.5 Neut % (Auto) 82.2 H Lymph % (Auto) 8.6 L [place] % (Auto) 8.4 Eos % (Auto) 0.3 Baso % (Auto) 0.5 Neut # (Auto) 12.0 H Lymph # (Auto) 1.2 [place] # (Auto) 1.2 H Eos # (Auto) 0.0 Baso # (Auto) 0.1 Neutrophils % (Manual) 84 H Lymphocytes % (Manual) 6 L Monocytes % (Manual) 9 Basophils % (Manual) 1 Platelet Estimate Normal Large Platelets Present Polychromasia Hypochromasia (manual) Slight Poikilocytosis (manual Slight Anisocytosis (manual) Slight Target Cells Slight Ovalocytes Slight PT INR APTT Sodium Potassium Chloride Carbon Dioxide Anion Gap BUN Creatinine Est GFR ( Amer) Est GFR (Non-Af Amer) POC Glucose (mg/dL) 281 H Random Glucose Hemoglobin A1c 7.8 H Calcium Total Bilirubin AST ALT Alkaline Phosphatase Total Protein Albumin Globulin Albumin/Globulin Ratio Urine Color Urine Clarity Urine pH Ur Specific [place] Urine Protein Urine Glucose (UA) Urine Ketones Urine Blood Urine Nitrate Urine Bilirubin Urine Urobilinogen Ur Leukocyte Esterase Urine WBC (Auto) Urine RBC (Auto) Urine Bacteria 09/30/17 11:02 WBC RBC Hgb Hct MCV MCH MCHC RDW Plt Count MPV Neut % (Auto) Lymph % (Auto) [place] % (Auto) Eos % (Auto) Baso % (Auto) Neut # (Auto) Lymph # (Auto) [place] # (Auto) Eos # (Auto) Baso # (Auto) Neutrophils % (Manual) Lymphocytes % (Manual) Monocytes % (Manual) Basophils % (Manual) Platelet Estimate Large Platelets Polychromasia Hypochromasia (manual) Poikilocytosis (manual Anisocytosis (manual) Target Cells Ovalocytes PT INR APTT Sodium Potassium Chloride Carbon Dioxide Anion Gap BUN Creatinine Est GFR ( Amer) Est GFR (Non-Af Amer) POC Glucose (mg/dL) 358 H Random Glucose Hemoglobin A1c Calcium Total Bilirubin AST ALT Alkaline Phosphatase Total Protein Albumin Globulin Albumin/Globulin Ratio Urine Color Urine Clarity Urine pH Ur Specific [place] Urine Protein Urine Glucose (UA) Urine Ketones Urine Blood Urine Nitrate Urine Bilirubin Urine Urobilinogen Ur Leukocyte Esterase Urine WBC (Auto) Urine RBC (Auto) Urine Bacteria Assessment & Plan (1) Cellulitis of knee, left Status: Acute (2) Contusion of knee, left Status: Acute (3) Septic prepatellar bursitis of left knee Status: Acute (4) Uncontrolled diabetes mellitus Status: Acute (5) Uncontrolled hypertension Status: Acute - Assessment and Plan (Free Text) Assessment: await I and D IV antibiotics and imaging ordered
[2017-09-30] MEDS: HYDROmorphone 0.5 mg/0.5 ml ISec IVP PRN (13:26)
--- NOTE | 2017-09-30 14:00 | CP.PCM.CON ---
History of Present Illness - History of Present Illness History of Present Illness: Orthopedic consultation Dr. Roger 87F complains of left knee pain for a couple days after fall. Patient doesn't remember what day it is, but knows it is September and that she is in [facility], so exact duration unknown. She denies knee pain prior to this episode. Denies pain in other joints. Denies gout. +DM Review of Systems - Review of Systems All systems: reviewed and no additional remarkable complaints except Review of Systems: denies fever chills - Cardiovascular Additional comments: no cp - Respiratory Additional comments: n oSOB - Musculoskeletal Musculoskeletal: As Per HPI - Integumentary Integumentary: As Per HPI - Neurological Additional comments: +falls no dizziness Past Patient History - Tetanus Immunizations Tetanus Immunization: Unknown - Past Medical History & Family History Past Medical History?: Yes Past Family History: Reviewed and not pertinent - Past Social History Smoking Status: Never Smoked Alcohol: None Drugs: Denies - CARDIAC Hx Cardiac Disorders: Yes Hx Hypertension: Yes - PULMONARY Hx Respiratory Disorders: No - NEUROLOGICAL Hx Neurological Disorder: Yes Hx Alzheimer's Disease: Yes - HEENT Hx HEENT Problems: Yes Hx Blind: Yes (Legally Blind) - RENAL Hx Chronic Kidney Disease: No - ENDOCRINE/METABOLIC Hx Endocrine Disorders: Yes Hx Diabetes Mellitus Type 2: Yes - HEMATOLOGICAL/ONCOLOGICAL Hx Blood Disorders: No - INTEGUMENTARY Hx Dermatological Problems: No Other/Comment: left knee swollen and red - MUSCULOSKELETAL/RHEUMATOLOGICAL Hx Musculoskeletal Disorders: Yes Hx Falls: Yes (RECURRENT FALL AT HOME) - GASTROINTESTINAL Hx Gastrointestinal Disorders: No Other/Comment: problem with stomach - GENITOURINARY/GYNECOLOGICAL Hx Genitourinary Disorders: No Hx Incontinence: Yes - PSYCHIATRIC Hx Psychophysiologic Disorder: No Hx Substance Use: No - SURGICAL HISTORY Hx Surgeries: Yes Other/Comment: Cyst in the Ovary removed - 2008 - ANESTHESIA Hx Anesthesia: Yes Hx Anesthesia Reactions: No Hx Malignant Hyperthermia: No Has any member of the family had a problem w/ anesthesia?: No Meds Allergies/Adverse Reactions: Allergies Allergy/AdvReac Type Severity Reaction Status Date / Time No Known Allergies Allergy Verified 03/12/16 11:18 - Medications Medications: Current Medications Acetaminophen (Tylenol 325mg Tab) 650 mg PO Q6 PRN PRN Reason: Pain, moderate (4-7) Last Admin: 04/10/18 08:22 Dose: 650 mg Docusate Sodium (Colace) 100 mg PO BID [facility] Last Admin: 09/30/17 09:52 Dose: 100 mg Enoxaparin Sodium (Lovenox) 40 mg SC DAILY [facility] Last Admin: 09/30/17 09:52 Dose: 40 mg Hydromorphone HCl (Dilaudid) 0.5 mg IVP Q4H PRN PRN Reason: Pain, severe (8-10) Last Admin: 09/30/17 13:26 Dose: 0.5 mg Vancomycin/Sodium Chloride (Vancomycin 1 Gm/Ns 200 Ml) 1 gm in 200 mls @ 133 mls/hr IVPB Q24H PUJA PRN Reason: Protocol Stop: 10/05/17 10:01 Last Admin: 09/30/17 09:51 Dose: 133 mls/hr Cefazolin Sodium 2 gm/ Sodium (Chloride) 100 mls @ 100 mls/hr IVPB Q8 PUJA PRN Reason: Protocol Last Admin: 09/30/17 13:27 Dose: 100 mls/hr Insulin Aspart (Novolog) 0 unit SC ACHS [facility] PRN Reason: Protocol Last Admin: 09/30/17 13:28 Dose: 8 unit Losartan Potassium (Cozaar) 50 mg PO DAILY [facility] Last Admin: 09/30/17 09:52 Dose: 50 mg Pneumococcal Polyvalent Vaccine (Pneumovax 23 Vaccine) 0.5 ml IM .ONCE ONE Stop: 10/02/17 10:01 Physical Exam - Constitutional Appears: Well, No Acute Distress - Head Exam Head Exam: ATRAUMATIC - Respiratory Exam Respiratory Exam: NORMAL BREATHING PATTERN - Cardiovascular Exam Additional comments: +DP/PT pulses calves soft NT neg homans - Extremities Exam Additional comments: flexes left knee to about 40 degrees then complains of pain erythema localized to anterior knee only palpable abscess sensation intact - Expanded Lower Extremities Exam Left Lower Leg Exam: erythema, tenderness - Neurological Exam Neurological exam: Alert Additional comments: oriented to month, place, person - Psychiatric Exam Additional comments: cries easily - Skin Skin Exam: Intact, Warm Additional comments: +erythema left knee +2cm abscess anterior knee over patella, +fluctuance Results - Vital Signs Recent Vital Signs: Last Vital Signs Temp 98.6 F 09/30/17 08:00 Pulse 87 09/30/17 11:00 Resp 20 09/30/17 08:00 BP 167/72 H 09/30/17 11:00 Pulse Ox 96 09/30/17 11:00 - Labs Result Diagrams: 09/30/17 07:02 09/29/17 13:27 Labs: Laboratory Results - last 24 hr 09/29/17 09/29/17 09/29/17 13:27 14:04 16:03 WBC RBC Hgb Hct MCV MCH MCHC RDW Plt Count MPV Neut % (Auto) Lymph % (Auto) [place] % (Auto) Eos % (Auto) Baso % (Auto) Neut # (Auto) Lymph # (Auto) [place] # (Auto) Eos # (Auto) Baso # (Auto) Neutrophils % (Manual) 88 H Lymphocytes % (Manual) 5 L Monocytes % (Manual) 7 Basophils % (Manual) Platelet Estimate Normal Large Platelets Polychromasia Slight Hypochromasia (manual) Slight Poikilocytosis (manual Anisocytosis (manual) Slight Target Cells Ovalocytes POC Glucose (mg/dL) 338 H Hemoglobin A1c Urine Color Yellow Urine Clarity Clear Urine pH 5.0 Ur Specific [place] 1.024 Urine Protein 2+ H Urine Glucose (UA) 3+ H Urine Ketones 1+ H Urine Blood 2+ H Urine Nitrate Negative Urine Bilirubin Negative Urine Urobilinogen Normal Ur Leukocyte Esterase Neg Urine WBC (Auto) 3 Urine RBC (Auto) 6 H Urine Bacteria Many H 09/29/17 09/29/17 09/30/17 18:02 21:08 07:02 WBC 14.6 H RBC 4.32 Hgb 11.3 Hct 34.2 MCV 79.3 L MCH 26.1 L MCHC 32.9 L RDW 18.7 H Plt Count 217 MPV 9.5 Neut % (Auto) 82.2 H Lymph % (Auto) 8.6 L [place] % (Auto) 8.4 Eos % (Auto) 0.3 Baso % (Auto) 0.5 Neut # (Auto) 12.0 H Lymph # (Auto) 1.2 [place] # (Auto) 1.2 H Eos # (Auto) 0.0 Baso # (Auto) 0.1 Neutrophils % (Manual) 84 H Lymphocytes % (Manual) 6 L Monocytes % (Manual) 9 Basophils % (Manual) 1 Platelet Estimate Normal Large Platelets Present Polychromasia Hypochromasia (manual) Slight Poikilocytosis (manual Slight Anisocytosis (manual) Slight Target Cells Slight Ovalocytes Slight POC Glucose (mg/dL) 280 H 227 H Hemoglobin A1c Urine Color Urine Clarity Urine pH Ur Specific [place] Urine Protein Urine Glucose (UA) Urine Ketones Urine Blood Urine Nitrate Urine Bilirubin Urine Urobilinogen Ur Leukocyte Esterase Urine WBC (Auto) Urine RBC (Auto) Urine Bacteria 09/30/17 09/30/17 09/30/17 07:02 07:03 11:02 WBC RBC Hgb Hct MCV MCH MCHC RDW Plt Count MPV Neut % (Auto) Lymph % (Auto) [place] % (Auto) Eos % (Auto) Baso % (Auto) Neut # (Auto) Lymph # (Auto) [place] # (Auto) Eos # (Auto) Baso # (Auto) Neutrophils % (Manual) Lymphocytes % (Manual) Monocytes % (Manual) Basophils % (Manual) Platelet Estimate Large Platelets Polychromasia Hypochromasia (manual) Poikilocytosis (manual Anisocytosis (manual) Target Cells Ovalocytes POC Glucose (mg/dL) 281 H 358 H Hemoglobin A1c 7.8 H Urine Color Urine Clarity Urine pH Ur Specific [place] Urine Protein Urine Glucose (UA) Urine Ketones Urine Blood Urine Nitrate Urine Bilirubin Urine Urobilinogen Ur Leukocyte Esterase Urine WBC (Auto) Urine RBC (Auto) Urine Bacteria - Impressions Impression: atient Name / ID : DANE CALLAWAY / [id number] Exam Date : 09/29/2017 13:39:50 ( Approved ) Study Comment : Sex / Age : F / 87Y Creator : Alexandria Villarreal MD Dictator : Alexandria Villarreal MD Is Project Manager : News Library Director : Alexandria Villarreal MD Approver2 : Report Date : 09/29/2017 14:34:45 My Comment : PROCEDURE: Left Knee Radiographs. HISTORY: Pain. COMPARISON: None. FINDINGS: BONES: There is diffuse bone demineralization. There is no acute displaced fracture or bone destruction. JOINTS: There is mild tricompartmental degenerative osteoarthrosis with reduced joint spaces, marginal spurring and tibial spiking, worse in the medial compartment. JOINT EFFUSION: There is a small suprapatellar joint effusion. OTHER FINDINGS: There is moderate prepatellar soft tissue swelling. There are atherosclerotic vascular calcifications. IMPRESSION: No acute fracture or dislocation. Mild tricompartmental degenerative osteoarthrosis, worse in the medial compartment and small suprapatellar joint effusion. Moderate prepatellar soft tissue swelling. Assessment & Plan (1) Septic prepatellar bursitis of left knee Assessment and Plan: clinically does not appear to involve knee joint MRI ID consultation appreciated f/u MRI and note response to antibiotics, may need I&D d/w Dr. Roger, agrees with above labs in am Status: Acute
[2017-09-30] MEDS ORDERED: HYDROmorphone 1 mg/ml ISec IVP STA (16:42)
[2017-09-30] MEDS ORDERED: HYDROmorphone 0.5 mg/0.5 ml ISec IVP STA (16:51)
[2017-09-30] MEDS ORDERED: Gadodiamide 287 MG/ML VIAL (15ML) IV ONE (17:50)
--- NOTE | 2017-09-30 18:53 | MRI ---
EXAM: MR Left Lower Extremity Without and With Intravenous Contrast, Knee EXAM DATE/TIME: Exam ordered 09/30/2017 1:54 PM CLINICAL HISTORY: 87 years old, female; Pain; Knee; Bilatera; Additional info: Left knee swelling and abscess TECHNIQUE: Multiplanar magnetic resonance images of the left knee without and with intravenous contrast. CONTRAST: 12 mL of omniscan administered intravenously. COMPARISON: No relevant prior studies available. FINDINGS: BONES/JOINTS/CARTILAGE: Patellofemoral compartment: There is thinning of the articular cartilage of the patellofemoral joint. Subchondral cyst formation is noted on the patellar side. Femorotibial compartments: There is narrowing of the medial compartment of the knee joint. Marginal osteophytes border the medial and lateral compartments of the knee joint. There is spurring of the tibial spines. Small subchondral cysts are noted along the medial peripheral aspect of the medial tibial plateau. Extensor mechanism: Unremarkable. Medial meniscus: Abnormal signal communicates with the inferior articular surface of the posterior horn medial meniscus. Lateral meniscus: Intrameniscal signal.. No tear. Medial capsule/supporting structures: Edema is noted superficial to the medial collateral and lateral collateral complexes. Lateral capsule/supporting structures: Edema is noted laterally adjacent to the iliotibial band. Anterior cruciate ligament: Unremarkable. Posterior cruciate ligament: Unremarkable. Musculature: Unremarkable. Soft tissues: There is prepatellar soft tissue swelling.There is a prepatellar fluid collection noted measuring 4.1 x 0.6 by 2.9 cm. There is a small joint effusion. IMPRESSION: 1. Edema/cellulitis involving the soft tissues surrounding the anterior aspect of the knee with a prepatellar fluid collection that could represent an inflamed fluid distended bursa. Infection not excluded. 2. Small tear the posterior horn of the medial meniscus. 3. Advanced chondromalacia patella. 4. Moderately advanced degenerative changes involving the medial compartment of the knee joint 5. Edema adjacent to the iliotibial band
--- NOTE | 2017-09-30 21:42 | CP.PCM.PN ---
Subjective - Date & Time of Evaluation Date of Evaluation: 09/30/17 Time of Evaluation: 21:40 - Subjective Subjective: Patient is complaining of pain of the left knee, Low grade fever, MRI of the left knee: soft tissue swelling anterio to the patella. For incision of the left knee abscess in AM. Objective - Vital Signs/Intake and Output Vital Signs (last 24 hours): Temp Pulse Resp BP Pulse Ox 98.3 F 98 H 20 179/71 H 97 09/30/17 16:00 09/30/17 16:00 09/30/17 16:00 09/30/17 16:00 09/30/17 16:00 Intake and Output: 09/30/17 10/01/17 18:59 06:59 Intake Total 500 Balance 500 - Medications Medications: Current Medications Acetaminophen (Tylenol 325mg Tab) 650 mg PO Q6 PRN PRN Reason: Pain, moderate (4-7) Last Admin: 09/30/17 08:22 Dose: 650 mg Docusate Sodium (Colace) 100 mg PO BID [facility] Last Admin: 09/30/17 09:52 Dose: 100 mg Enoxaparin Sodium (Lovenox) 40 mg SC DAILY [facility] Last Admin: 09/30/17 09:52 Dose: 40 mg Hydromorphone HCl (Dilaudid) 0.5 mg IVP Q4H PRN PRN Reason: Pain, severe (8-10) Last Admin: 09/30/17 13:26 Dose: 0.5 mg Vancomycin/Sodium Chloride (Vancomycin 1 Gm/Ns 200 Ml) 1 gm in 200 mls @ 133 mls/hr IVPB Q24H [facility] PRN Reason: Protocol Stop: 10/05/17 10:01 Last Admin: 09/30/17 09:51 Dose: 133 mls/hr Cefazolin Sodium 2 gm/ Sodium (Chloride) 100 mls @ 100 mls/hr IVPB Q8 [facility] PRN Reason: Protocol Last Admin: 09/30/17 13:27 Dose: 100 mls/hr Insulin Aspart (Novolog) 0 unit SC ACHS [facility] PRN Reason: Protocol Last Admin: 09/30/17 13:28 Dose: 8 unit Losartan Potassium (Cozaar) 100 mg PO DAILY [facility] Pneumococcal Polyvalent Vaccine (Pneumovax 23 Vaccine) 0.5 ml IM .ONCE ONE Stop: 10/02/17 10:01 - Labs Labs: 09/30/17 07:02 09/29/17 13:27 PT 12.3 SECONDS (9.7-12.2) H 09/29/17 13:27 INR 1.1 09/29/17 13:27 APTT 33 SECONDS (21-34) 09/29/17 13:27 - Constitutional Appears: Agitated - Head Exam Head Exam: NORMAL INSPECTION - Eye Exam Eye Exam: Normal appearance - ENT Exam ENT Exam: Normal Exam - Neck Exam Neck Exam: Normal Inspection - Respiratory Exam Respiratory Exam: NORMAL BREATHING PATTERN - Cardiovascular Exam Cardiovascular Exam: REGULAR RHYTHM - GI/Abdominal Exam GI & Abdominal Exam: Soft, Normal Bowel Sounds - Rectal Exam Rectal Exam: Deferred - Extremities Exam Additional comments: Swelling, and erythema and tenderness of the left knee. - Back Exam Back Exam: NORMAL INSPECTION - Neurological Exam Additional comments: Confused at times. - Psychiatric Exam Psychiatric exam: Anxious Assessment and Plan (1) Cellulitis of knee, left Assessment & Plan: For incision of the abscess in AM. Status: Acute (2) Uncontrolled diabetes mellitus Assessment & Plan: May add Glipizide to control blood glucose. Status: Acute (3) Uncontrolled hypertension Assessment & Plan: Increase Losartan to 100 mg PO qd. Status: Acute (4) Fall Status: Acute (5) Contusion of knee, left Status: Acute
[2017-10-01] MEDS: ceFAZolin 2 GM in Sodium Chloride 0.9% 100 ML IVPB SCH (05:41)
[2017-10-01] MEDS: (Novolog) Insulin Aspart, Recombinant 100 u/ml 10 ml vial SC SCH ×4 (07:58→22:00)
[2017-10-01 08:17] LABS: BASO # 0.1 K/uL (0.0-0.2); BASO % 0.4 % (0.0-2.0); EOS # 0.1 K/uL (0.0-0.7); EOS % 0.5 % (0.0-4.0); HEMOGLOBIN 11.5 g/dL (11.0-16.0); LYMPH % 7.2 % (20.0-40.0); MEAN CELL VOLUME 79.6 fL (81.0-99.0); MEAN CORPUSCULAR HGB CONC 32.6 g/dL (33.0-37.0); MEAN PLATELET VOLUME 9.6 fL (7.2-11.7); MONO # 0.6 K/uL (0.0-0.8); MONO % 4.4 % (0.0-10.0); NEUT # 11.7 K/uL (1.8-7.0); NEUT % 87.5 % (50.0-75.0); PLATELET COUNT 256 K/uL (130-400); RBC 4.44 Mil/uL (3.80-5.20); RED CELL DISTRIBUTION WIDTH 18.9 % (11.5-14.5); WHITE BLOOD COUNT 13.4 K/uL (4.8-10.8)
[2017-10-01 09:27] LABS: BLOOD UREA NITROGEN 22 mg/dL (7-17); CALCIUM 9.3 mg/dl (8.6-10.4); GFR AFRICAN-AMERICAN > 60; GFR NON-AFRICAN AMERICAN 53
[2017-10-01 09:34] LABS: ANISOCYTOSIS SLIGHT; BANDS 2 % (0-2); EOSINOPHIL 1 % (0-4); HYPOCHROMIC SLIGHT; LYMPHOCYTE 10 % (20-40); MONOCYTE 4 % (0-10); NEUTROPHIL 83 % (50-75); OVALOCYTES SLIGHT; PLATELET ESTIMATE NORMAL (NORMAL); POIKILOCYTOSIS SLIGHT; TEARDROP CELLS SLIGHT; TOTAL CELLS COUNTED 100
[2017-10-01 09:35] LABS: BURR CELLS SLIGHT; LARGE PLATELETS PRESENT
[2017-10-01] MEDS: Vancomycin 1 gm/NS 200 ml 1 GM/200 ML BAG IVPB SCH (09:36)
[2017-10-01] MEDS: Enoxaparin 40 mg Syringe SC SCH (10:00)
[2017-10-01] MEDS: HYDROmorphone 0.5 mg/0.5 ml ISec IVP PRN ×2 (10:49→16:24)
[2017-10-01] MEDS ORDERED: Potassium Chloride 20 mEq ER Tab PO ONE (14:20)
[2017-10-01] MEDS: Cefepime IV 1 gm in Dextrose 1 GM/50 ML BAG IVPB SCH (17:34)
--- NOTE | 2017-10-01 17:36 | CP.PCM.PN ---
Subjective - Date & Time of Evaluation Date of Evaluation: 10/01/17 Time of Evaluation: 10:00 - Subjective Subjective: still c/o pain denies fever s/p I and D Objective - Vital Signs/Intake and Output Vital Signs (last 24 hours): Temp Pulse Resp BP Pulse Ox 98.6 F 102 H 20 192/82 H 98 10/01/17 16:00 10/01/17 16:00 10/01/17 16:00 10/01/17 16:00 10/01/17 16:19 Intake and Output: 10/01/17 10/01/17 06:59 18:59 Intake Total 150 300 Balance 150 300 - Medications Medications: Current Medications Acetaminophen (Tylenol 325mg Tab) 650 mg PO Q6 PRN PRN Reason: Pain, moderate (4-7) Last Admin: 09/30/17 08:22 Dose: 650 mg Docusate Sodium (Colace) 100 mg PO BID [facility] Last Admin: 10/01/17 09:34 Dose: 100 mg Enoxaparin Sodium (Lovenox) 40 mg SC DAILY [facility] Last Admin: 10/01/17 10:00 Dose: Not Given Hydromorphone HCl (Dilaudid) 0.5 mg IVP Q4H PRN PRN Reason: Pain, severe (8-10) Last Admin: 10/01/17 16:24 Dose: 0.5 mg Cefepime HCl (Maxipime Iv 1 Gm Premix) 1 gm in 50 mls @ 100 mls/hr IVPB Q12H [facility] PRN Reason: Protocol Last Admin: 10/01/17 17:34 Dose: 100 mls/hr Vancomycin HCl 1 gm/ Sodium (Chloride) 200 mls @ 166.7 mls/hr IVPB Q24H [facility] PRN Reason: Protocol Insulin Aspart (Novolog) 0 unit SC ACHS [facility] PRN Reason: Protocol Last Admin: 10/01/17 17:30 Dose: 6 unit Losartan Potassium (Cozaar) 100 mg PO DAILY [facility] Last Admin: 10/01/17 09:34 Dose: 100 mg Pneumococcal Polyvalent Vaccine (Pneumovax 23 Vaccine) 0.5 ml IM .ONCE ONE Stop: 10/02/17 10:01 - Labs Labs: 10/01/17 08:12 10/01/17 08:12 PT 12.3 SECONDS (9.7-12.2) H 09/29/17 13:27 INR 1.1 09/29/17 13:27 APTT 33 SECONDS (21-34) 09/29/17 13:27 - Constitutional Appears: Non-toxic, Chronically Ill - Head Exam Head Exam: NORMOCEPHALIC - Eye Exam Eye Exam: PERRL - ENT Exam ENT Exam: Mucous Membranes Dry - Neck Exam Neck Exam: absent: Lymphadenopathy - Respiratory Exam Respiratory Exam: Decreased Breath Sounds - Cardiovascular Exam Cardiovascular Exam: REGULAR RHYTHM, +S1, +S2 - GI/Abdominal Exam GI & Abdominal Exam: Distended - Rectal Exam Rectal Exam: Deferred - Exam Exam: NORMAL INSPECTION Assessment and Plan (1) Cellulitis of knee, left Status: Acute (2) Contusion of knee, left Status: Acute (3) Septic prepatellar bursitis of left knee Status: Acute (4) Uncontrolled diabetes mellitus Status: Acute (5) Uncontrolled hypertension Status: Acute
--- NOTE | 2017-10-01 23:35 | CP.PCM.PN ---
Subjective - Date & Time of Evaluation Date of Evaluation: 10/01/17 Time of Evaluation: 13:30 - Subjective Subjective: Patient had bedside incision of the left knee abscess. Patient is still slightly confused with pain of the left knee. Objective - Vital Signs/Intake and Output Vital Signs (last 24 hours): Temp Pulse Resp BP Pulse Ox 98.6 F 101 H 20 183/77 H 98 10/01/17 16:00 10/01/17 22:00 10/01/17 16:00 10/01/17 22:00 10/01/17 16:19 Intake and Output: 10/01/17 10/02/17 18:59 06:59 Intake Total 300 350 Balance 300 350 - Medications Medications: Current Medications Acetaminophen (Tylenol 325mg Tab) 650 mg PO Q6 PRN PRN Reason: Pain, moderate (4-7) Last Admin: 09/30/17 08:22 Dose: 650 mg Amlodipine Besylate (Norvasc) 5 mg PO DAILY [facility] Last Admin: 10/01/17 19:06 Dose: 5 mg Docusate Sodium (Colace) 100 mg PO BID [facility] Last Admin: 10/01/17 17:35 Dose: 100 mg Enoxaparin Sodium (Lovenox) 40 mg SC DAILY [facility] Last Admin: 10/01/17 10:00 Dose: Not Given Hydromorphone HCl (Dilaudid) 0.5 mg IVP Q4H PRN PRN Reason: Pain, severe (8-10) Last Admin: 10/01/17 16:24 Dose: 0.5 mg Cefepime HCl (Maxipime Iv 1 Gm Premix) 1 gm in 50 mls @ 100 mls/hr IVPB Q12H [facility] PRN Reason: Protocol Last Admin: 10/01/17 17:34 Dose: 100 mls/hr Vancomycin HCl 1 gm/ Sodium (Chloride) 200 mls @ 166.7 mls/hr IVPB Q24H [facility] PRN Reason: Protocol Insulin Aspart (Novolog) 0 unit SC ACHS [facility] PRN Reason: Protocol Last Admin: 10/01/17 22:00 Dose: Not Given Losartan Potassium (Cozaar) 100 mg PO DAILY [facility] Last Admin: 10/01/17 09:34 Dose: 100 mg Pneumococcal Polyvalent Vaccine (Pneumovax 23 Vaccine) 0.5 ml IM .ONCE ONE Stop: 10/02/17 10:01 - Labs Labs: 10/01/17 08:12 10/01/17 08:12 PT 12.3 SECONDS (9.7-12.2) H 09/29/17 13:27 INR 1.1 09/29/17 13:27 APTT 33 SECONDS (21-34) 09/29/17 13:27 - Constitutional Appears: No Acute Distress, Confused - Head Exam Head Exam: NORMAL INSPECTION - Eye Exam Eye Exam: Normal appearance - ENT Exam ENT Exam: Normal Exam - Neck Exam Neck Exam: Normal Inspection - Respiratory Exam Respiratory Exam: Clear to Ausculation Bilateral - Cardiovascular Exam Cardiovascular Exam: REGULAR RHYTHM - GI/Abdominal Exam GI & Abdominal Exam: Soft, Normal Bowel Sounds - Rectal Exam Rectal Exam: Deferred - Extremities Exam Extremities Exam: Tenderness Additional comments: Tender at the site of the left knee incision. - Back Exam Back Exam: NORMAL INSPECTION - Neurological Exam Neurological Exam: Alert, Awake - Psychiatric Exam Psychiatric exam: Agitated Assessment and Plan (1) Cellulitis of knee, left Assessment & Plan: S/p incision of the left knee abscess incision. Status: Acute (2) Uncontrolled diabetes mellitus Assessment & Plan: Add Glipizide to control DM. Status: Acute (3) Uncontrolled hypertension Assessment & Plan: Add Amlodipine to control BP. Status: Acute (4) Fall Status: Acute (5) Contusion of knee, left Status: Acute
[2017-10-02] MEDS: Cefepime IV 1 gm in Dextrose 1 GM/50 ML BAG IVPB SCH ×2 (06:05→17:48)
[2017-10-02 07:27] LABS: BASO # 0.1 K/uL (0.0-0.2); BASO % 0.5 % (0.0-2.0); EOS % 0.4 % (0.0-4.0); HEMOGLOBIN 10.9 g/dL (11.0-16.0); LYMPH # 0.8 K/uL (1.0-4.3); LYMPH % 6.3 % (20.0-40.0); MEAN CELL VOLUME 80.2 fL (81.0-99.0); MEAN CORPUSCULAR HEMOGLOBIN 25.9 pg (27.0-31.0); MEAN CORPUSCULAR HGB CONC 32.3 g/dL (33.0-37.0); MEAN PLATELET VOLUME 9.5 fL (7.2-11.7); MONO # 0.8 K/uL (0.0-0.8); MONO % 6.5 % (0.0-10.0); NEUT # 10.5 K/uL (1.8-7.0); NEUT % 86.3 % (50.0-75.0); NRBC % 0.1 % (0.0-2.0); PLATELET COUNT 250 K/uL (130-400); RED CELL DISTRIBUTION WIDTH 18.4 % (11.5-14.5); WHITE BLOOD COUNT 12.1 K/uL (4.8-10.8)
[2017-10-02 07:36] LABS: BLOOD UREA NITROGEN 23 mg/dL (7-17); CALCIUM 9.3 mg/dl (8.6-10.4); GFR AFRICAN-AMERICAN > 60; GFR NON-AFRICAN AMERICAN 60
[2017-10-02] MEDS: (Novolog) Insulin Aspart, Recombinant 100 u/ml 10 ml vial SC SCH ×4 (07:57→22:21)
--- NOTE | 2017-10-02 08:23 | CP.PCM.PN ---
Subjective - Date & Time of Evaluation Date of Evaluation: 10/02/17 Time of Evaluation: 08:19 - Subjective Subjective: Ortho f/u Dr. Roger Patient complaining of left knee pain. Today is less agreeable to exam. No other complaints. Review of Systems - Review of Systems All systems: reviewed and no additional remarkable complaints except Review of Systems: more confused today - Musculoskeletal Musculoskeletal: As Par HPI - Integumentary Integumentary: As Per HPI Objective - Vital Signs/Intake and Output Vital Signs (last 24 hours): Temp Pulse Resp BP Pulse Ox 97.9 F 109 H 20 186/84 H 95 10/02/17 07:42 10/02/17 07:42 10/02/17 07:42 10/02/17 07:42 10/02/17 07:42 Intake and Output: 10/02/17 10/02/17 06:59 18:59 Intake Total 400 Balance 400 - Medications Medications: Current Medications Acetaminophen (Tylenol 325mg Tab) 650 mg PO Q6 PRN PRN Reason: Pain, moderate (4-7) Last Admin: 09/30/17 08:22 Dose: 650 mg Amlodipine Besylate (Norvasc) 5 mg PO DAILY [facility] Last Admin: 10/01/17 19:06 Dose: 5 mg Docusate Sodium (Colace) 100 mg PO BID [facility] Last Admin: 10/01/17 17:35 Dose: 100 mg Enoxaparin Sodium (Lovenox) 40 mg SC DAILY [facility] Last Admin: 10/01/17 10:00 Dose: Not Given Hydromorphone HCl (Dilaudid) 0.5 mg IVP Q4H PRN PRN Reason: Pain, severe (8-10) Last Admin: 10/01/17 16:24 Dose: 0.5 mg Cefepime HCl (Maxipime Iv 1 Gm Premix) 1 gm in 50 mls @ 100 mls/hr IVPB Q12H [facility] PRN Reason: Protocol Last Admin: 10/02/17 06:05 Dose: 100 mls/hr Vancomycin HCl 1 gm/ Sodium (Chloride) 200 mls @ 166.7 mls/hr IVPB Q24H [facility] PRN Reason: Protocol Insulin Aspart (Novolog) 0 unit SC ACHS [facility] PRN Reason: Protocol Last Admin: 10/02/17 07:57 Dose: 4 unit Losartan Potassium (Cozaar) 100 mg PO DAILY [facility] Last Admin: 10/01/17 09:34 Dose: 100 mg Metformin HCl (Glucophage) 500 mg PO BID [facility] Pneumococcal Polyvalent Vaccine (Pneumovax 23 Vaccine) 0.5 ml IM .ONCE ONE Stop: 10/02/17 10:01 - Labs Labs: 10/02/17 07:12 10/02/17 07:12 PT 12.3 SECONDS (9.7-12.2) H 09/29/17 13:27 INR 1.1 09/29/17 13:27 APTT 33 SECONDS (21-34) 09/29/17 13:27 - Constitutional Appears: Well, In Acute Distress (during dressing change complains of pain) - Head Exam Head Exam: ATRAUMATIC - Neck Exam Neck Exam: Full ROM - Respiratory Exam Respiratory Exam: NORMAL BREATHING PATTERN - Cardiovascular Exam Additional comments: +DP/PT pulses - Extremities Exam Additional comments: packing removed, draining pus. No new fluctuance, erythema around incision site from I&D by Dr. Roger yesterday. Pain with knee flex > 40 degrees, sensation intact, calves soft Nt neg homans - Neurological Exam Neurological Exam: Awake Neuro motor strength exam: Left Lower Extremity: 5 (+ROM ankle/toes) - Psychiatric Exam Psychiatric exam: Agitated - Skin Skin Exam: Warm Additional comments: draining Assessment and Plan (1) Septic prepatellar bursitis of left knee Assessment & Plan: 1 day s/p bedside I&D left prepatellar bursa abscess cultures pending PT for OOB improving antibiotics per ID VTE proph d/w Dr. 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 no. Patient Name: NILTON VELA Pt. Address: [address] [place] [address] Rec #: [id number] [place] [address]: Viviane Domínguez PA-C Pt Order Location: [facility] : 1930 Female Age: 87 Order #: [id number] Reason for exam: left knee swelling and abscess Magnetic Resonance Imaging LOWER EXT ANY JNT LT W/WO CONT Exam Date: 09/30/17 This imaging exam was performed at [facility] EXAM: MR Left Lower Extremity Without and With Intravenous Contrast, Knee EXAM DATE/TIME: Exam ordered 09/30/2017 1:54 PM CLINICAL HISTORY: 87 years old, female; Pain; Knee; Bilatera; Additional info: Left knee swelling and abscess TECHNIQUE: Multiplanar magnetic resonance images of the left knee without and with intravenous contrast. CONTRAST: 12 mL of omniscan administered intravenously. COMPARISON: No relevant prior studies available. FINDINGS: BONES/JOINTS/CARTILAGE: Patellofemoral compartment: There is thinning of the articular cartilage of the patellofemoral joint. Subchondral cyst formation is noted on the patellar side. Femorotibial compartments: There is narrowing of the medial compartment of the knee joint. Marginal osteophytes border the medial and lateral compartments of the knee joint. There is spurring of the tibial spines. Small subchondral cysts are noted along the medial peripheral aspect of the medial tibial plateau. Extensor mechanism: Unremarkable. Medial meniscus: Abnormal signal communicates with the inferior articular surface of the posterior horn medial meniscus. Lateral meniscus: Intrameniscal signal.. No tear. Medial capsule/supporting structures: Edema is noted superficial to the medial collateral and lateral collateral complexes. Lateral capsule/supporting structures: Edema is noted laterally adjacent to the iliotibial band. Anterior cruciate ligament: Unremarkable. Posterior cruciate ligament: Unremarkable. Musculature: Unremarkable. Soft tissues: There is prepatellar soft tissue swelling.There is a prepatellar fluid collection noted measuring 4.1 x 0.6 by 2.9 cm. There is a small joint effusion. IMPRESSION: 1. Edema/cellulitis involving the soft tissues surrounding the anterior aspect of the knee with a prepatellar fluid collection that could represent an inflamed fluid distended bursa. Infection not excluded. 2. Small tear the posterior horn of the medial meniscus. 3. Advanced chondromalacia patella. 4. Moderately advanced degenerative changes involving the medial compartment of the knee joint 5. Edema adjacent to the iliotibial band Dictated By: Flavia Frausto MD Dictated Date/Time: 09/30/171851 Signed By: Flavia Frausto MD Date Signed: 1851 Transcribed By: [facility] Transcribe Date/Time : 09/30/171851 LESLIE/GISELLE
[2017-10-02 08:50] LABS: BASOPHIL 1 % (0-2); LYMPHOCYTE 7 % (20-40); MONOCYTE 6 % (0-10); NEUTROPHIL 86 % (50-75); PLATELET ESTIMATE NORMAL (NORMAL); TOTAL CELLS COUNTED 100
[2017-10-02 08:51] LABS: ANISOCYTOSIS SLIGHT; BURR CELLS SLIGHT; HYPOCHROMIC SLIGHT; LARGE PLATELETS PRESENT; POIKILOCYTOSIS SLIGHT; TARGET CELLS SLIGHT
[2017-10-02] MEDS: Enoxaparin 40 mg Syringe SC SCH (09:49)
[2017-10-02] MEDS: Vancomycin 1 GM in Sodium Chloride 0.9% 200 ML IVPB SCH (09:57)
[2017-10-02] MEDS ORDERED: Pneumococcal 23-Valent Vaccine IM ONE (10:00)
[2017-10-02] MEDS: Morphine 4 MG/ML VIAL IVP PRN ×2 (11:16→15:34)
--- NOTE | 2017-10-02 18:46 | CP.PCM.PN ---
Subjective - Date & Time of Evaluation Date of Evaluation: 10/02/17 Time of Evaluation: 08:00 - Subjective Subjective: still draining pus left knee cultures pending cont iv rx Objective - Vital Signs/Intake and Output Vital Signs (last 24 hours): Temp Pulse Resp BP Pulse Ox 98.1 F 98 H 20 186/84 H 98 10/02/17 15:00 10/02/17 15:01 10/02/17 15:00 10/02/17 15:01 10/02/17 15:01 Intake and Output: 10/02/17 10/02/17 06:59 18:59 Intake Total 400 780 Balance 400 780 - Medications Medications: Current Medications Acetaminophen (Tylenol 325mg Tab) 650 mg PO Q6 PRN PRN Reason: Pain, moderate (4-7) Last Admin: 09/30/17 08:22 Dose: 650 mg Amlodipine Besylate (Norvasc) 5 mg PO DAILY [facility] Last Admin: 10/02/17 09:50 Dose: 5 mg Docusate Sodium (Colace) 100 mg PO BID [facility] Last Admin: 10/02/17 17:39 Dose: 100 mg Enoxaparin Sodium (Lovenox) 40 mg SC DAILY [facility] Last Admin: 10/02/17 09:49 Dose: 40 mg Cefepime HCl (Maxipime Iv 1 Gm Premix) 1 gm in 50 mls @ 100 mls/hr IVPB Q12H [facility] PRN Reason: Protocol Last Admin: 10/02/17 17:48 Dose: 100 mls/hr Vancomycin HCl 1 gm/ Sodium (Chloride) 200 mls @ 166.7 mls/hr IVPB Q24H [facility] PRN Reason: Protocol Last Admin: 10/02/17 09:57 Dose: 166.7 mls/hr Insulin Aspart (Novolog) 0 unit SC ACHS [facility] PRN Reason: Protocol Last Admin: 10/02/17 17:39 Dose: 6 unit Losartan Potassium (Cozaar) 100 mg PO DAILY [facility] Last Admin: 10/02/17 09:49 Dose: 100 mg Metformin HCl (Glucophage) 500 mg PO BID [facility] Last Admin: 10/02/17 17:39 Dose: 500 mg Morphine Sulfate (Morphine) 2 mg IVP Q4 PRN PRN Reason: Pain, severe (8-10) Last Admin: 10/02/17 15:34 Dose: 2 mg - Labs Labs: 10/02/17 07:12 10/02/17 07:12 PT 12.3 SECONDS (9.7-12.2) H 09/29/17 13:27 INR 1.1 09/29/17 13:27 APTT 33 SECONDS (21-34) 09/29/17 13:27 - Constitutional Appears: Non-toxic, Chronically Ill - Head Exam Head Exam: NORMOCEPHALIC - Eye Exam Eye Exam: PERRL - ENT Exam ENT Exam: Mucous Membranes Dry - Neck Exam Neck Exam: absent: Lymphadenopathy - Respiratory Exam Respiratory Exam: Decreased Breath Sounds - Cardiovascular Exam Cardiovascular Exam: REGULAR RHYTHM - GI/Abdominal Exam GI & Abdominal Exam: Distended - Rectal Exam Rectal Exam: Deferred - Exam Exam: NORMAL INSPECTION - Extremities Exam Extremities Exam: absent: Pedal Edema - Back Exam Back Exam: absent: CVA tenderness (L), CVA tenderness (R) - Neurological Exam Neurological Exam: Alert, Awake, Oriented x3 - Psychiatric Exam Psychiatric exam: Depressed - Skin Skin Exam: Dry Assessment and Plan (1) Cellulitis of knee, left Status: Acute (2) Contusion of knee, left Status: Acute (3) Septic prepatellar bursitis of left knee Status: Acute (4) Uncontrolled diabetes mellitus Status: Acute (5) Uncontrolled hypertension Status: Acute - Assessment and Plan (Free Text) Assessment: prepatellar bursitis- persistent drainage s/p i and d may need further debridement
--- NOTE | 2017-10-03 00:19 | CP.PCM.PN ---
Subjective - Date & Time of Evaluation Date of Evaluation: 10/02/17 Time of Evaluation: 08:30 - Subjective Subjective: Patient still with left knee pain and with weakness and poor appetite. On IV antibiotics. Objective - Vital Signs/Intake and Output Vital Signs (last 24 hours): Temp Pulse Resp BP Pulse Ox 98.5 F 99 H 20 145/63 97 10/02/17 23:57 10/02/17 23:57 10/02/17 23:57 10/02/17 23:57 10/02/17 23:57 Intake and Output: 10/02/17 10/03/17 18:59 06:59 Intake Total 780 200 Balance 780 200 - Medications Medications: Current Medications Acetaminophen (Tylenol 325mg Tab) 650 mg PO Q6 PRN PRN Reason: Pain, moderate (4-7) Last Admin: 09/30/17 08:22 Dose: 650 mg Amlodipine Besylate (Norvasc) 10 mg PO DAILY [facility] Docusate Sodium (Colace) 100 mg PO BID [facility] Last Admin: 10/02/17 17:39 Dose: 100 mg Enoxaparin Sodium (Lovenox) 40 mg SC DAILY [facility] Last Admin: 10/02/17 09:49 Dose: 40 mg Cefepime HCl (Maxipime Iv 1 Gm Premix) 1 gm in 50 mls @ 100 mls/hr IVPB Q12H [facility] PRN Reason: Protocol Last Admin: 10/02/17 17:48 Dose: 100 mls/hr Vancomycin HCl 1 gm/ Sodium (Chloride) 200 mls @ 166.7 mls/hr IVPB Q24H [facility] PRN Reason: Protocol Last Admin: 10/02/17 09:57 Dose: 166.7 mls/hr Insulin Aspart (Novolog) 0 unit SC ACHS [facility] PRN Reason: Protocol Last Admin: 10/02/17 22:21 Dose: Not Given Losartan Potassium (Cozaar) 100 mg PO DAILY [facility] Last Admin: 10/02/17 09:49 Dose: 100 mg Metformin HCl (Glucophage) 500 mg PO BID [facility] Last Admin: 10/02/17 17:39 Dose: 500 mg Morphine Sulfate (Morphine) 2 mg IVP Q4 PRN PRN Reason: Pain, severe (8-10) Last Admin: 10/02/17 15:34 Dose: 2 mg - Labs Labs: 10/02/17 07:12 10/02/17 07:12 PT 12.3 SECONDS (9.7-12.2) H 09/29/17 13:27 INR 1.1 09/29/17 13:27 APTT 33 SECONDS (21-34) 09/29/17 13:27 - Constitutional Appears: No Acute Distress, Confused, Chronically Ill - Head Exam Head Exam: NORMAL INSPECTION - Eye Exam Eye Exam: Normal appearance - ENT Exam ENT Exam: Normal Exam - Neck Exam Neck Exam: Normal Inspection - Respiratory Exam Respiratory Exam: Clear to Ausculation Bilateral, NORMAL BREATHING PATTERN - Cardiovascular Exam Cardiovascular Exam: REGULAR RHYTHM - GI/Abdominal Exam GI & Abdominal Exam: Soft, Normal Bowel Sounds - Rectal Exam Rectal Exam: Deferred - Extremities Exam Additional comments: Left knee abscess still draining . - Back Exam Back Exam: NORMAL INSPECTION - Neurological Exam Additional comments: Lethargic, slightly confused. - Psychiatric Exam Psychiatric exam: Anxious Additional comments: Confused. Assessment and Plan (1) Cellulitis of knee, left Assessment & Plan: To continue IV antibiotics Status: Acute (2) Uncontrolled diabetes mellitus Assessment & Plan: On Metformin. Status: Acute (3) Uncontrolled hypertension Assessment & Plan: Increase Amlodipine to 10 mg PO qd. Status: Acute (4) Fall Status: Acute (5) Contusion of knee, left Status: Acute
[2017-10-03] MEDS: Cefepime IV 1 gm in Dextrose 1 GM/50 ML BAG IVPB SCH (06:04)
[2017-10-03] MEDS: (Novolog) Insulin Aspart, Recombinant 100 u/ml 10 ml vial SC SCH ×4 (08:08→21:38)
[2017-10-03] MEDS: Enoxaparin 40 mg Syringe SC SCH (09:46)
[2017-10-03] MEDS: Vancomycin 1 GM in Sodium Chloride 0.9% 200 ML IVPB SCH (09:48)
[2017-10-03] MEDS: Morphine 4 MG/ML VIAL IVP PRN (10:53)
--- NOTE | 2017-10-03 11:45 | CP.PCM.PN ---
Subjective - Date & Time of Evaluation Date of Evaluation: 10/03/17 Time of Evaluation: 11:37 - Subjective Subjective: Patient doesn't complain of pain until exam, then complains of knee pain. No new complaints. Review of Systems - Review of Systems All systems: reviewed and no additional remarkable complaints except Review of Systems: confused - Musculoskeletal Musculoskeletal: As Par HPI Objective - Vital Signs/Intake and Output Vital Signs (last 24 hours): Temp Pulse Resp BP Pulse Ox 98.8 F 82 20 178/71 H 96 10/03/17 08:36 10/03/17 08:36 10/03/17 08:36 10/03/17 08:36 10/03/17 08:36 Intake and Output: 10/03/17 10/03/17 06:59 18:59 Intake Total 450 Balance 450 - Medications Medications: Current Medications Acetaminophen (Tylenol 325mg Tab) 650 mg PO Q6 PRN PRN Reason: Pain, moderate (4-7) Last Admin: 09/30/17 08:22 Dose: 650 mg Amlodipine Besylate (Norvasc) 10 mg PO DAILY [facility] Last Admin: 10/03/17 09:47 Dose: 10 mg Docusate Sodium (Colace) 100 mg PO BID [facility] Last Admin: 10/03/17 09:47 Dose: 100 mg Enoxaparin Sodium (Lovenox) 40 mg SC DAILY [facility] Last Admin: 10/03/17 09:46 Dose: 40 mg Cefepime HCl (Maxipime Iv 1 Gm Premix) 1 gm in 50 mls @ 100 mls/hr IVPB Q12H [facility] PRN Reason: Protocol Last Admin: 10/03/17 06:04 Dose: 100 mls/hr Vancomycin HCl 1 gm/ Sodium (Chloride) 200 mls @ 166.7 mls/hr IVPB Q24H [facility] PRN Reason: Protocol Last Admin: 10/03/17 09:48 Dose: 166.7 mls/hr Insulin Aspart (Novolog) 0 unit SC ACHS [facility] PRN Reason: Protocol Last Admin: 10/03/17 08:08 Dose: 4 unit Losartan Potassium (Cozaar) 100 mg PO DAILY [facility] Last Admin: 10/03/17 09:47 Dose: 100 mg Metformin HCl (Glucophage) 500 mg PO BID [facility] Last Admin: 10/03/17 09:47 Dose: 500 mg Morphine Sulfate (Morphine) 2 mg IVP Q4 PRN PRN Reason: Pain, severe (8-10) Last Admin: 10/03/17 10:53 Dose: 2 mg - Labs Labs: 10/02/17 07:12 10/02/17 07:12 PT 12.3 SECONDS (9.7-12.2) H 09/29/17 13:27 INR 1.1 09/29/17 13:27 APTT 33 SECONDS (21-34) 09/29/17 13:27 - Constitutional Appears: Well, No Acute Distress (pain with exam) - Head Exam Head Exam: ATRAUMATIC - Neck Exam Neck Exam: Full ROM, Normal Inspection - Respiratory Exam Respiratory Exam: NORMAL BREATHING PATTERN - Extremities Exam Additional comments: sensation intact +DP/PT pulses calves soft NT neg homans incision still draining purulent drainage, able to express small amount of pus anterior knee still erythematous sterile saline soaked gauze used as wick to encourage continued drainage calves soft NT neg homans - Neurological Exam Neurological Exam: Alert, Awake Neuro motor strength exam: Left Lower Extremity: 5 - Psychiatric Exam Psychiatric exam: Agitated - Skin Skin Exam: Warm Additional comments: erythema to anterior knee, no improvement since yesterday Assessment and Plan (1) Septic prepatellar bursitis of left knee Assessment & Plan: s/p bedside I&D no new collection, but still significant drainage from incision site recommend continued inpatient treatment and monitoring of knee/wound at this time until drainage decreased and erythema improves intraop cx +MSSA PT as darwin encourage OOB antibiotics per ID d/w Dr. Roger, agrees with above Status: Acute
--- NOTE | 2017-10-03 14:53 | CP.PCM.PN ---
Subjective - Date & Time of Evaluation Date of Evaluation: 10/03/17 Time of Evaluation: 08:00 - Subjective Subjective: c/o pain left knee grew MSSA ancef added Vanco d/c'd Objective - Vital Signs/Intake and Output Vital Signs (last 24 hours): Temp Pulse Resp BP Pulse Ox 98.8 F 82 20 178/71 H 96 10/03/17 08:36 10/03/17 08:36 10/03/17 08:36 10/03/17 08:36 10/03/17 08:36 Intake and Output: 10/03/17 10/03/17 06:59 18:59 Intake Total 450 800 Balance 450 800 - Medications Medications: Current Medications Acetaminophen (Tylenol 325mg Tab) 650 mg PO Q6 PRN PRN Reason: Pain, moderate (4-7) Last Admin: 09/30/17 08:22 Dose: 650 mg Amlodipine Besylate (Norvasc) 10 mg PO DAILY [facility] Last Admin: 10/03/17 09:47 Dose: 10 mg Docusate Sodium (Colace) 100 mg PO BID [facility] Last Admin: 10/03/17 09:47 Dose: 100 mg Enoxaparin Sodium (Lovenox) 40 mg SC DAILY [facility] Last Admin: 10/03/17 09:46 Dose: 40 mg Cefazolin Sodium 2,000 mg/ (Sodium Chloride) 50 mls @ 100 mls/hr IVPB Q8H [facility] PRN Reason: Protocol Insulin Aspart (Novolog) 0 unit SC ACHS [facility] PRN Reason: Protocol Last Admin: 10/03/17 12:12 Dose: 6 unit Losartan Potassium (Cozaar) 100 mg PO DAILY [facility] Last Admin: 10/03/17 09:47 Dose: 100 mg Metformin HCl (Glucophage) 500 mg PO BID [facility] Last Admin: 10/03/17 09:47 Dose: 500 mg Morphine Sulfate (Morphine) 2 mg IVP Q4 PRN PRN Reason: Pain, severe (8-10) Last Admin: 10/03/17 10:53 Dose: 2 mg - Labs Labs: 10/02/17 07:12 10/02/17 07:12 PT 12.3 SECONDS (9.7-12.2) H 09/29/17 13:27 INR 1.1 09/29/17 13:27 APTT 33 SECONDS (21-34) 09/29/17 13:27 - Constitutional Appears: Non-toxic, Chronically Ill - Head Exam Head Exam: NORMOCEPHALIC - Eye Exam Eye Exam: PERRL. absent: Scleral icterus - ENT Exam ENT Exam: Mucous Membranes Dry - Neck Exam Neck Exam: absent: Lymphadenopathy - Respiratory Exam Respiratory Exam: Decreased Breath Sounds - Cardiovascular Exam Cardiovascular Exam: REGULAR RHYTHM - GI/Abdominal Exam GI & Abdominal Exam: Distended, Soft. absent: Tenderness - Rectal Exam Rectal Exam: Deferred - Exam Exam: NORMAL INSPECTION - Extremities Exam Extremities Exam: Joint Swelling, Pedal Edema, Tenderness - Back Exam Back Exam: absent: CVA tenderness (L), CVA tenderness (R) - Neurological Exam Neurological Exam: Alert, Awake, Oriented x3 Neuro motor strength exam: Left Upper Extremity: 3, Right Upper Extremity: 3, Left Lower Extremity: 3, Right Lower Extremity: 3 - Psychiatric Exam Psychiatric exam: Depressed - Skin Skin Exam: Dry Assessment and Plan (1) Cellulitis of knee, left Status: Acute (2) Contusion of knee, left Status: Acute (3) Septic prepatellar bursitis of left knee Status: Acute (4) Uncontrolled diabetes mellitus Status: Acute (5) Uncontrolled hypertension Status: Acute - Assessment and Plan (Free Text) Assessment: iv rx in progress needs ongoing wound care and possible further debridement
[2017-10-03] MEDS: ceFAZolin 2 GM in Sodium Chloride 0.9% 100 ML IVPB SCH (16:50)
[2017-10-03] MEDS ORDERED: DiphenhydrAMINE 50 mg/ml Inj IVP ONE (20:00)
[2017-10-03 23:18] VITALS: RESP 20
[2017-10-04] MEDS: ceFAZolin 2 GM in Sodium Chloride 0.9% 100 ML IVPB SCH ×3 (00:30→16:26)
--- NOTE | 2017-10-04 02:57 | CP.PCM.PN ---
Subjective - Date & Time of Evaluation Date of Evaluation: 10/03/17 Time of Evaluation: 13:30 - Subjective Subjective: Patient is confused, complaining of left knee pain. Culture of left knee drainage reveals MSSA, and culture of urine reveals E coli. Vancomycine was discontinued and Ancef was added, Objective - Vital Signs/Intake and Output Vital Signs (last 24 hours): Temp Pulse Resp BP Pulse Ox 98.2 F 100 H 20 179/73 H 96 10/03/17 23:16 10/03/17 23:16 10/03/17 23:16 10/03/17 23:16 10/03/17 23:16 Intake and Output: 10/03/17 10/04/17 18:59 06:59 Intake Total 800 200 Balance 800 200 - Medications Medications: Current Medications Acetaminophen (Tylenol 325mg Tab) 650 mg PO Q6 PRN PRN Reason: Pain, moderate (4-7) Last Admin: 09/30/17 08:22 Dose: 650 mg Amlodipine Besylate (Norvasc) 10 mg PO DAILY [facility] Last Admin: 10/03/17 09:47 Dose: 10 mg Docusate Sodium (Colace) 100 mg PO BID [facility] Last Admin: 10/03/17 17:01 Dose: 100 mg Enoxaparin Sodium (Lovenox) 40 mg SC DAILY [facility] Last Admin: 10/03/17 09:46 Dose: 40 mg Cefazolin Sodium 2 gm/ Sodium (Chloride) 100 mls @ 100 mls/hr IVPB Q8H [facility] PRN Reason: Protocol Last Admin: 10/04/17 00:30 Dose: 100 mls/hr Insulin Aspart (Novolog) 0 unit SC ACHS [facility] PRN Reason: Protocol Last Admin: 10/03/17 21:38 Dose: Not Given Losartan Potassium (Cozaar) 100 mg PO DAILY [facility] Last Admin: 10/03/17 09:47 Dose: 100 mg Metformin HCl (Glucophage) 500 mg PO BID [facility] Last Admin: 10/03/17 17:01 Dose: 500 mg Morphine Sulfate (Morphine) 2 mg IVP Q4 PRN PRN Reason: Pain, severe (8-10) Last Admin: 10/03/17 10:53 Dose: 2 mg - Labs Labs: 10/02/17 07:12 10/02/17 07:12 PT 12.3 SECONDS (9.7-12.2) H 09/29/17 13:27 INR 1.1 09/29/17 13:27 APTT 33 SECONDS (21-34) 09/29/17 13:27 - Constitutional Appears: No Acute Distress - Head Exam Head Exam: NORMAL INSPECTION - Eye Exam Eye Exam: Normal appearance - ENT Exam ENT Exam: Normal Exam - Neck Exam Neck Exam: Normal Inspection - Respiratory Exam Respiratory Exam: Clear to Ausculation Bilateral, NORMAL BREATHING PATTERN - Cardiovascular Exam Cardiovascular Exam: REGULAR RHYTHM - GI/Abdominal Exam GI & Abdominal Exam: Soft, Normal Bowel Sounds - Rectal Exam Rectal Exam: Deferred - Extremities Exam Additional comments: Left knee draining. - Back Exam Back Exam: NORMAL INSPECTION - Neurological Exam Neurological Exam: Alert, Awake Additional comments: Confused. - Psychiatric Exam Psychiatric exam: Anxious Assessment and Plan (1) Cellulitis of knee, left Assessment & Plan: Culture shows MSSA. On IV Ancef. Status: Acute (2) Uncontrolled diabetes mellitus Status: Acute (3) Uncontrolled hypertension Status: Acute (4) Fall Status: Acute (5) Contusion of knee, left Status: Acute (6) E. coli urinary tract infection Assessment & Plan: Antibiotic as per Dr Faustin. Status: Acute
[2017-10-04] MEDS: Morphine 4 MG/ML VIAL IVP PRN (06:23)
[2017-10-04] MEDS: (Novolog) Insulin Aspart, Recombinant 100 u/ml 10 ml vial SC SCH ×4 (08:28→22:31)
[2017-10-04] MEDS: Enoxaparin 40 mg Syringe SC SCH (10:28)
--- NOTE | 2017-10-04 20:48 | CP.PCM.PN ---
Subjective - Date & Time of Evaluation Date of Evaluation: 10/04/17 Time of Evaluation: 20:45 - Subjective Subjective: Patient more alert, less confused with better appetite. Afebrile with minimal draining from the left knee incision. Her blood glucose has been elevated. We will add glipizide PO. Objective - Vital Signs/Intake and Output Vital Signs (last 24 hours): Temp Pulse Resp BP Pulse Ox 98.5 F 92 H 20 157/68 H 95 10/04/17 15:00 10/04/17 15:00 10/04/17 15:00 10/04/17 15:00 10/04/17 15:00 Intake and Output: 10/04/17 10/05/17 18:59 06:59 Intake Total 400 Balance 400 - Medications Medications: Current Medications Acetaminophen (Tylenol 325mg Tab) 650 mg PO Q6 PRN PRN Reason: Pain, moderate (4-7) Last Admin: 09/30/17 08:22 Dose: 650 mg Amlodipine Besylate (Norvasc) 10 mg PO DAILY [facility] Last Admin: 10/04/17 10:28 Dose: 10 mg Docusate Sodium (Colace) 100 mg PO BID [facility] Last Admin: 10/04/17 18:00 Dose: 100 mg Enoxaparin Sodium (Lovenox) 40 mg SC DAILY [facility] Last Admin: 10/04/17 10:28 Dose: 40 mg Cefazolin Sodium 2 gm/ Sodium (Chloride) 100 mls @ 100 mls/hr IVPB Q8H [facility] PRN Reason: Protocol Last Admin: 10/04/17 16:26 Dose: 100 mls/hr Insulin Aspart (Novolog) 0 unit SC ACHS [facility] PRN Reason: Protocol Last Admin: 10/04/17 16:34 Dose: 4 unit Losartan Potassium (Cozaar) 100 mg PO DAILY [facility] Last Admin: 10/04/17 10:28 Dose: 100 mg Metformin HCl (Glucophage) 500 mg PO BID [facility] Last Admin: 10/04/17 18:00 Dose: 500 mg Morphine Sulfate (Morphine) 2 mg IVP Q4 PRN PRN Reason: Pain, severe (8-10) Last Admin: 10/04/17 06:23 Dose: 2 mg - Labs Labs: 10/02/17 07:12 10/02/17 07:12 PT 12.3 SECONDS (9.7-12.2) H 09/29/17 13:27 INR 1.1 09/29/17 13:27 APTT 33 SECONDS (21-34) 09/29/17 13:27 - Constitutional Appears: No Acute Distress, Confused, Chronically Ill - Head Exam Head Exam: NORMAL INSPECTION - Eye Exam Eye Exam: Normal appearance - ENT Exam ENT Exam: Normal Exam - Neck Exam Neck Exam: Normal Inspection - Respiratory Exam Respiratory Exam: Clear to Ausculation Bilateral, NORMAL BREATHING PATTERN - Cardiovascular Exam Cardiovascular Exam: REGULAR RHYTHM - GI/Abdominal Exam GI & Abdominal Exam: Soft, Normal Bowel Sounds - Rectal Exam Rectal Exam: Deferred - Extremities Exam Extremities Exam: Normal Inspection - Back Exam Back Exam: NORMAL INSPECTION - Neurological Exam Neurological Exam: Alert, Awake - Psychiatric Exam Psychiatric exam: Anxious - Skin Skin Exam: Normal Color, Warm Additional comments: Left knee still swollen and tender but with less drainiage. Assessment and Plan (1) Cellulitis of knee, left Assessment & Plan: S/p I@D of the left knee abscess. On IV antibiotics. Status: Acute (2) Uncontrolled diabetes mellitus Assessment & Plan: Will add glipizide. Status: Acute (3) Uncontrolled hypertension Assessment & Plan: Will add MetoprololXL 25 mg PO qd. Status: Acute (4) Fall Status: Acute (5) Contusion of knee, left Status: Acute (6) E. coli urinary tract infection Status: Acute
[2017-10-05] MEDS: ceFAZolin 2 GM in Sodium Chloride 0.9% 100 ML IVPB SCH ×3 (00:07→16:52)
[2017-10-05] MEDS: Morphine 4 MG/ML VIAL IVP PRN (07:28)
[2017-10-05] MEDS: (Novolog) Insulin Aspart, Recombinant 100 u/ml 10 ml vial SC SCH ×4 (08:28→21:35)
[2017-10-05] MEDS: GlipiZIDE 5 mg SR Tab PO SCH (10:11)
[2017-10-05] MEDS: Metoprolol Succinate 25 mg XL Tab PO SCH (10:11)
[2017-10-05] MEDS: Enoxaparin 40 mg Syringe SC SCH (10:12)
--- NOTE | 2017-10-05 18:14 | CP.PCM.PN ---
Subjective - Date & Time of Evaluation Date of Evaluation: 10/05/17 Time of Evaluation: 09:00 - Subjective Subjective: c/o pain left knee grew MSSA on ancef tolerating well cont iv rx Objective - Vital Signs/Intake and Output Vital Signs (last 24 hours): Temp Pulse Resp BP Pulse Ox 98.6 F 90 20 172/73 H 96 10/05/17 15:37 10/05/17 15:37 10/05/17 15:37 10/05/17 15:37 10/05/17 15:37 Intake and Output: 10/05/17 10/05/17 06:59 18:59 Intake Total 400 800 Balance 400 800 - Medications Medications: Current Medications Acetaminophen (Tylenol 325mg Tab) 650 mg PO Q6 PRN PRN Reason: Pain, moderate (4-7) Last Admin: 09/30/17 08:22 Dose: 650 mg Amlodipine Besylate (Norvasc) 10 mg PO DAILY [facility] Last Admin: 10/05/17 10:11 Dose: 10 mg Docusate Sodium (Colace) 100 mg PO BID [facility] Last Admin: 10/05/17 17:15 Dose: 100 mg Enoxaparin Sodium (Lovenox) 40 mg SC DAILY [facility] Last Admin: 10/05/17 10:12 Dose: 40 mg Glipizide (Glucotrol Xl) 5 mg PO DAILY [facility] Last Admin: 10/05/17 10:11 Dose: 5 mg Cefazolin Sodium 2 gm/ Sodium (Chloride) 100 mls @ 100 mls/hr IVPB Q8H [facility] PRN Reason: Protocol Last Admin: 10/05/17 16:52 Dose: 100 mls/hr Insulin Aspart (Novolog) 0 unit SC ACHS [facility] PRN Reason: Protocol Last Admin: 10/05/17 16:53 Dose: 2 unit Losartan Potassium (Cozaar) 100 mg PO DAILY [facility] Last Admin: 10/05/17 10:11 Dose: 100 mg Metformin HCl (Glucophage) 500 mg PO BID [facility] Last Admin: 10/05/17 17:14 Dose: 500 mg Metoprolol Succinate (Toprol Xl) 25 mg PO DAILY [facility] Last Admin: 10/05/17 10:11 Dose: 25 mg Morphine Sulfate (Morphine) 2 mg IVP Q4 PRN PRN Reason: Pain, severe (8-10) Last Admin: 10/05/17 07:28 Dose: 2 mg - Labs Labs: 10/02/17 07:12 10/02/17 07:12 PT 12.3 SECONDS (9.7-12.2) H 09/29/17 13:27 INR 1.1 09/29/17 13:27 APTT 33 SECONDS (21-34) 09/29/17 13:27 - Constitutional Appears: Non-toxic, Chronically Ill - Head Exam Head Exam: NORMOCEPHALIC - Eye Exam Eye Exam: PERRL - ENT Exam ENT Exam: Mucous Membranes Dry, Normal External Ear Exam - Neck Exam Neck Exam: absent: Lymphadenopathy - Respiratory Exam Respiratory Exam: Decreased Breath Sounds, Rhonchi - Cardiovascular Exam Cardiovascular Exam: REGULAR RHYTHM, +S1, +S2 - GI/Abdominal Exam GI & Abdominal Exam: Distended, Soft. absent: Tenderness Assessment and Plan (1) Cellulitis of knee, left Status: Acute (2) Contusion of knee, left Status: Acute (3) Septic prepatellar bursitis of left knee Status: Acute (4) Uncontrolled diabetes mellitus Status: Acute (5) Uncontrolled hypertension Status: Acute
[2017-10-06] MEDS: ceFAZolin 2 GM in Sodium Chloride 0.9% 100 ML IVPB SCH ×3 (00:34→16:29)
[2017-10-06] MEDS: (Novolog) Insulin Aspart, Recombinant 100 u/ml 10 ml vial SC SCH ×2 (08:33→12:37)
[2017-10-06] MEDS: Morphine 4 MG/ML VIAL IVP PRN (08:35)
[2017-10-06] MEDS: GlipiZIDE 5 mg SR Tab PO SCH (10:39)
[2017-10-06] MEDS: Metoprolol Succinate 25 mg XL Tab PO SCH (10:40)
[2017-10-06] MEDS: Enoxaparin 40 mg Syringe SC SCH (10:42)
[2017-10-06 11:14] LABS: BASO # 0.1 K/uL (0.0-0.2); BASO % 0.9 % (0.0-2.0); EOS # 0.3 K/uL (0.0-0.7); EOS % 3.5 % (0.0-4.0); LYMPH % 12.7 % (20.0-40.0); MEAN CELL VOLUME 80.3 fL (81.0-99.0); MEAN CORPUSCULAR HGB CONC 32.4 g/dL (33.0-37.0); MEAN PLATELET VOLUME 9.3 fL (7.2-11.7); MONO # 0.8 K/uL (0.0-0.8); NEUT # 5.5 K/uL (1.8-7.0); NEUT % 72.9 % (50.0-75.0); RBC 4.59 Mil/uL (3.80-5.20); RED CELL DISTRIBUTION WIDTH 18.2 % (11.5-14.5); WHITE BLOOD COUNT 7.6 K/uL (4.8-10.8)
[2017-10-06 11:32] LABS: BLOOD UREA NITROGEN 26 mg/dL (7-17); CALCIUM 9.5 mg/dl (8.6-10.4); GFR AFRICAN-AMERICAN > 60; GFR NON-AFRICAN AMERICAN 60
--- NOTE | 2017-10-06 11:32 | CP.PCM.PN ---
Subjective - Date & Time of Evaluation Date of Evaluation: 10/06/17 Time of Evaluation: 11:28 - Subjective Subjective: Patiet still complaining of knee pain but says it is better. Denies CP/SOB/ dizziness. Review of Systems - Review of Systems All systems: reviewed and no additional remarkable complaints except - Musculoskeletal Musculoskeletal: As Par HPI Objective - Vital Signs/Intake and Output Vital Signs (last 24 hours): Temp Pulse Resp BP Pulse Ox 99.0 F 88 20 165/84 H 99 10/06/17 08:00 10/06/17 08:00 10/06/17 08:00 10/06/17 08:00 10/06/17 08:00 Intake and Output: 10/06/17 10/06/17 06:59 18:59 Intake Total 550 250 Balance 550 250 - Medications Medications: Current Medications Acetaminophen (Tylenol 325mg Tab) 650 mg PO Q6 PRN PRN Reason: Pain, moderate (4-7) Last Admin: 09/30/17 08:22 Dose: 650 mg Amlodipine Besylate (Norvasc) 10 mg PO DAILY [facility] Last Admin: 10/06/17 10:40 Dose: 10 mg Docusate Sodium (Colace) 100 mg PO BID [facility] Last Admin: 10/06/17 10:40 Dose: 100 mg Enoxaparin Sodium (Lovenox) 40 mg SC DAILY [facility] Last Admin: 10/06/17 10:42 Dose: 40 mg Glipizide (Glucotrol Xl) 5 mg PO DAILY [facility] Last Admin: 10/06/17 10:39 Dose: 5 mg Cefazolin Sodium 2 gm/ Sodium (Chloride) 100 mls @ 100 mls/hr IVPB Q8H [facility] PRN Reason: Protocol Last Admin: 10/06/17 08:33 Dose: 100 mls/hr Insulin Aspart (Novolog) 0 unit SC ACHS [facility] PRN Reason: Protocol Last Admin: 10/06/17 08:33 Dose: 10 unit Losartan Potassium (Cozaar) 100 mg PO DAILY [facility] Last Admin: 10/06/17 10:39 Dose: 100 mg Metformin HCl (Glucophage) 500 mg PO BID [facility] Last Admin: 10/06/17 10:39 Dose: 500 mg Metoprolol Succinate (Toprol Xl) 25 mg PO DAILY [facility] Last Admin: 10/06/17 10:40 Dose: 25 mg - Labs Labs: 10/06/17 11:05 10/02/17 07:12 PT 12.3 SECONDS (9.7-12.2) H 09/29/17 13:27 INR 1.1 09/29/17 13:27 APTT 33 SECONDS (21-34) 09/29/17 13:27 - Constitutional Appears: Well, No Acute Distress - Head Exam Head Exam: ATRAUMATIC - Neck Exam Neck Exam: Full ROM - Extremities Exam Additional comments: Moving left knee more actively sensation intact calves soft Nt neg homans - Neurological Exam Neurological Exam: Alert, Awake Neuro motor strength exam: Left Lower Extremity: 5 (ankle DF/PF) - Psychiatric Exam Psychiatric exam: Normal Affect, Normal Mood - Skin Skin Exam: Warm Additional comments: still draining small amount of pus from incision site. Not able to express any more pus. No palpable fluctuance to suggest collection. Still erythematous to anterior knee, but improved since friday. wound cleansed with saline and dressing cpplied. Assessment and Plan (1) Septic prepatellar bursitis of left knee Assessment & Plan: s/p bedside I&D Dr. Roger -per Dr. Roger, orthopedically stable for d/c to [facility] and f/u in office within 1 week continue antibiotics as per Dr. madera daily dressing changes with dry sterile dressing if worsens, patient to be transferred back to ER d/w Dr. Roger, agrees with above Status: Acute
--- NOTE | 2017-10-06 15:25 | RAD ---
HISTORY: verify right PICC COMPARISON: No FINDINGS: LUNGS: No active pulmonary disease. PLEURA: No significant pleural effusion identified, no pneumothorax apparent. CARDIOVASCULAR: Normal heart size. New right PICC catheter terminating at the cavoatrial junction. OSSEOUS STRUCTURES: No significant abnormalities. VISUALIZED UPPER ABDOMEN: Normal. OTHER FINDINGS: None. IMPRESSION: New right PICC catheter terminates at cavoatrial junction. No infiltrate.
[2017-10-06 16:44] VITALS: BP 128/69; PULSE 85; TEMP 98.1; O2SAT 99
--- NOTE | 2017-10-06 17:40 | CP.PCM.PN ---
Subjective - Date & Time of Evaluation Date of Evaluation: 10/06/17 Time of Evaluation: 11:00 - Subjective Subjective: Awake, alert, no distress. Objective - Vital Signs/Intake and Output Vital Signs (last 24 hours): Temp Pulse Resp BP Pulse Ox 98.1 F 85 20 128/69 99 10/06/17 15:00 10/06/17 15:00 10/06/17 15:00 10/06/17 15:00 10/06/17 15:00 Intake and Output: 10/06/17 10/06/17 06:59 18:59 Intake Total 550 250 Balance 550 250 - Labs Labs: 10/06/17 11:05 10/06/17 11:05 PT 12.3 SECONDS (9.7-12.2) H 09/29/17 13:27 INR 1.1 09/29/17 13:27 APTT 33 SECONDS (21-34) 09/29/17 13:27 Assessment and Plan - Assessment and Plan (Free Text) Assessment: Patient is seen and examined. Awake, alert, no sob or chest pains. Left knee wound is still draining a small amount, but is improving. Cleared by ortho and ID for discharge to [facility] on ancef 2gms q8hx 2 weeks. PICC line inserted. Family is informed, niece verbalized understanding and agreed with the transfer. To follow up with ortho in 1 week.
--- NOTE | 2017-10-08 23:55 | CP.PCM.DIS ---
Provider - Provider Date of Admission: 09/29/17 15:28 Attending physician: Shaun Begum MD Primary care physician: Dr EVANS COOPER. Consults: Dr Roger ( orthopedist), Dr Faustin (ID). Time Spent in preparation of Discharge (in minutes): 30 Diagnosis - Discharge Diagnosis (1) Cellulitis of knee, left Status: Acute (2) Uncontrolled diabetes mellitus Status: Acute (3) Uncontrolled hypertension Status: Acute (4) Fall Status: Acute (5) Contusion of knee, left Status: Acute (6) E. coli urinary tract infection Status: Acute (7) Senile dementia Status: Acute Hospital Course - Lab Results Lab Results: Micro Results 09/29/17 16:30 Blood Blood Culture - Final NO GROWTH AFTER 5 DAYS 09/29/17 16:30 Blood Gram Stain - Final TEST NOT PERFORMED 09/29/17 16:30 Blood Blood Culture - Final NO GROWTH AFTER 5 DAYS 09/29/17 16:30 Blood Gram Stain - Final TEST NOT PERFORMED 10/01/17 12:05 Abscess - Knee-Left Fungal Culture - Preliminary 10/01/17 11:58 Abscess - Knee-Left Gram Stain - Final 10/01/17 11:58 Abscess - Knee-Left Wound Culture - Final Staphylococcus Aureus 10/01/17 11:56 Abscess - Knee-Left Gram Stain - Final 10/01/17 11:56 Abscess - Knee-Left Wound Culture - Final Staphylococcus Aureus 10/01/17 11:50 Abscess - Knee-Left Gram Stain - Final 10/01/17 11:50 Abscess - Knee-Left Wound Culture - Final Staphylococcus Aureus 10/01/17 12:05 Other: Please Indicate Mycobacterial Culture - Preliminary 09/29/17 Unknown Urine Urine Culture - Final Escherichia Coli Most Recent Lab Values WBC 7.6 K/uL (4.8-10.8) 10/06/17 11:05 RBC 4.59 Mil/uL (3.80-5.20) 10/06/17 11:05 Hgb 12.0 g/dL (11.0-16.0) 10/06/17 11:05 Hct 36.9 % (34.0-47.0) 10/06/17 11:05 MCV 80.3 fL (81.0-99.0) L 10/06/17 11:05 MCH 26.0 pg (27.0-31.0) L 10/06/17 11:05 MCHC 32.4 g/dL (33.0-37.0) L 10/06/17 11:05 RDW 18.2 % (11.5-14.5) H 10/06/17 11:05 Plt Count 280 K/uL (130-400) 10/06/17 11:05 MPV 9.3 fL (7.2-11.7) 10/06/17 11:05 Neut % (Auto) 72.9 % (50.0-75.0) 10/06/17 11:05 Lymph % (Auto) 12.7 % (20.0-40.0) L 10/06/17 11:05 [place]gett % (Auto) 10.0 % (0.0-10.0) 10/06/17 11:05 Eos % (Auto) 3.5 % (0.0-4.0) 10/06/17 11:05 Baso % (Auto) 0.9 % (0.0-2.0) 10/06/17 11:05 Neut # (Auto) 5.5 K/uL (1.8-7.0) 10/06/17 11:05 Lymph # (Auto) 1.0 K/uL (1.0-4.3) 10/06/17 11:05 Daggett # (Auto) 0.8 K/uL (0.0-0.8) 10/06/17 11:05 Eos # (Auto) 0.3 K/uL (0.0-0.7) 10/06/17 11:05 Baso # (Auto) 0.1 K/uL (0.0-0.2) 10/06/17 11:05 Neutrophils % (Manual) 86 % (50-75) H 10/02/17 07:12 Band Neutrophils % 2 % (0-2) 10/01/17 08:12 Lymphocytes % (Manual) 7 % (20-40) L 10/02/17 07:12 Monocytes % (Manual) 6 % (0-10) 10/02/17 07:12 Eosinophils % (Manual) 1 % (0-4) 10/01/17 08:12 Basophils % (Manual) 1 % (0-2) 10/02/17 07:12 Platelet Estimate Normal (NORMAL) 10/02/17 07:12 Large Platelets Present 10/02/17 07:12 Polychromasia Slight 09/29/17 13:27 Hypochromasia (manual) Slight 10/02/17 07:12 Poikilocytosis (manual Slight 10/02/17 07:12 Anisocytosis (manual) Slight 10/02/17 07:12 Target Cells Slight 10/02/17 07:12 Tear Drop Cells Slight 10/01/17 08:12 Ovalocytes Slight 10/01/17 08:12 Delphos Cells Slight 10/02/17 07:12 PT 12.3 SECONDS (9.7-12.2) H 09/29/17 13:27 INR 1.1 09/29/17 13:27 APTT 33 SECONDS (21-34) 09/29/17 13:27 Sodium 151 mmol/L (132-148) H 10/06/17 11:05 Potassium 3.2 mmol/L (3.6-5.2) L 10/06/17 11:05 Chloride 108 mmol/L (98-107) H 10/06/17 11:05 Carbon Dioxide 29 mmol/L (22-30) 10/06/17 11:05 Anion Gap 17 (10-20) 10/06/17 11:05 BUN 26 mg/dL (7-17) H 10/06/17 11:05 Creatinine 0.9 mg/dL (0.7-1.2) 10/06/17 11:05 Est GFR ( Amer) > 60 10/06/17 11:05 Est GFR (Non-Af Amer) 60 10/06/17 11:05 POC Glucose (mg/dL) 207 mg/dL (65-110) H 10/06/17 16:17 Random Glucose 300 mg/dL (65-105) H 10/06/17 11:05 Hemoglobin A1c 7.8 % (4.2-6.5) H 09/30/17 07:02 Uric Acid 4.5 mg/dL (2.2-7.5) 09/30/17 13:57 Calcium 9.5 mg/dl (8.6-10.4) 10/06/17 11:05 Total Bilirubin 0.8 mg/dL (0.2-1.3) 09/29/17 13:27 AST 28 U/L (14-36) 09/29/17 13:27 ALT 10 U/L (9-52) 09/29/17 13:27 Alkaline Phosphatase 78 U/L (38-126) 09/29/17 13:27 Total Protein 8.5 g/dL (6.3-8.3) H 09/29/17 13:27 Albumin 4.4 g/dL (3.5-5.0) 09/29/17 13:27 Globulin 4.1 gm/dL (2.2-3.9) H 09/29/17 13:27 Albumin/Globulin Ratio 1.1 (1.0-2.1) 09/29/17 13:27 Procalcitonin 0.66 NG/ML (0.19-0.49) H 09/30/17 13:57 Urine Color Yellow (YELLOW) 09/29/17 14:04 Urine Clarity Clear (Clear) 09/29/17 14:04 Urine pH 5.0 (5.0-8.0) 09/29/17 14:04 Ur Specific Hominy 1.024 (1.003-1.030) 09/29/17 14:04 Urine Protein 2+ mg/dL (NEGATIVE) H 09/29/17 14:04 Urine Glucose (UA) 3+ mg/dL (Normal) H 09/29/17 14:04 Urine Ketones 1+ mg/dL (NEGATIVE) H 09/29/17 14:04 Urine Blood 2+ (NEGATIVE) H 09/29/17 14:04 Urine Nitrate Negative (NEGATIVE) 09/29/17 14:04 Urine Bilirubin Negative (NEGATIVE) 09/29/17 14:04 Urine Urobilinogen Normal mg/dL (0.2-1.0) 09/29/17 14:04 Ur Leukocyte Esterase Neg Fausto/uL (Negative) 09/29/17 14:04 Urine WBC (Auto) 3 /hpf (0-5) 09/29/17 14:04 Urine RBC (Auto) 6 /hpf (0-3) H 09/29/17 14:04 Urine Bacteria Many (<OCC) H 09/29/17 14:04 Vancomycin Trough 8.0 ug/mL (5.0-10.0) 10/01/17 08:12 - Hospital Course Hospital Course: 87 years old female was hospitalized for a swelling, painful left knee for the past few days, following a fall at home. She was slightly confused and did not have a fever. But in the ED, she was found to have a leukocytosis. CT scan of the head did not reveal anything acute. XRay of the left knee failed to show any fracture or dislocation. An MRI of the left knee revealed swelling and fluid collection in front of the left patella. She is known to have a hypertension, a non-insulin dependent diabetes mellitus, a mild senile dementia. The patient was started on Vancomycin IV and Cefepime IV in the ED. She was evaluated by Dr Faustin and Dr Roger, She underwent incision of the left knee collection by bedside on 10/01/2017. Culture of the Left knee abscess revealed Methicillin sensitive staphyloccus Aureus. Vancomycin was discontinued and Ancef 2g IVPB qid was added. A urine culture disclosed E. Coli sensitive to Kefzol. The patient improved gradually. The left knee skin incision ceased to drain. The patient became more alert. Her appetite improved. Her BP and serum glucose wer better controlled with Amlodipine 10 mg PO qd, Losartan 100 mg PO qd, Metoprolol succinate 25 mg PO qd, Metformin 500mg PO BID, Glipizide ER 5 mg PO qd. She was discharged to a subacute rehabilitation center on 10/06/2017 in a stable condition. According to Dr Faustin, she should receive 2 more weeks of Ancef 2 g IVPB qid. - Date & Time of H&P Date of H&P: 10/02/17 Discharge Exam - Head Exam Head Exam: ATRAUMATIC - Eye Exam Eye Exam: Normal appearance - ENT Exam ENT Exam: Normal Exam - Neck Exam Neck exam: Normal Inspection - Respiratory Exam Respiratory Exam: Clear to PA & Lateral, NORMAL BREATHING PATTERN, UNREMARKABLE - Cardiovascular Exam Cardiovascular Exam: REGULAR RHYTHM - GI/Abdominal Exam GI & Abdominal Exam: Normal Bowel Sounds - Rectal Exam Rectal Exam: Deferred - Exam Exam: NORMAL INSPECTION - Extremities Exam Extremities exam: normal inspection Additional comments: Left knee skin incision clean with no drainage, - Back Exam Back exam: NORMAL INSPECTION - Neurological Exam Neurological exam: Alert - Psychiatric Exam Psychiatric exam: Anxious - Skin Skin Exam: Normal Color, Warm Discharge Plan - Follow Up Plan Condition: STABLE Disposition: REHAB FACILITY/REHAB UNIT Instructions: Cellulitis (Skin Infection), Adult (DC), Leukocytosis (DC) Additional Instructions: Ancef 2gn q8h via PICC line for [address] Faustin left knee clean with NS apply guaze and acebandage daily follow up with ortho DR King in the office in 1 week send to OR if pain or swelling gets worse PT/ OT as tolerated Referrals: Shaun Begum MD [Staff Provider] -
== END 2017-10-06 17:00 | DRG 558 ==
LOC: C.ER 11:09 → C.9E 15:28 → C.3T 16:27
PROVIDERS: ADMIT Internal Medicine Cardiovascular Disease; ATTEND Internal Medicine Cardiovascular Disease
PROC: 0S9D0ZX Drainage of Left Knee Joint, Open Approach, Diagnostic (ICD-10-PCS; principal; 2017-10-01)
PROC: 02HV33Z Insertion of Infusion Device into Superior Vena Cava, Percutaneous Approach (ICD-10-PCS; 2017-10-06)
DX: M71.062 Abscess of bursa, left knee (principal); L03.116 Cellulitis of left lower limb; N39.0 Urinary tract infection, site not specified; E11.65 Type 2 diabetes mellitus with hyperglycemia; M22.42 Chondromalacia patellae, left knee; F02.80 Dementia in other diseases classified elsewhere, unspecified severity, without behavioral disturbance, psychotic disturbance, mood disturbance, and anxiety; G30.9 Alzheimer's disease, unspecified; H54.8 Legal blindness, as defined in USA; I10 Essential (primary) hypertension; R29.6 Repeated falls; S80.02XA Contusion of left knee, initial encounter; W06.XXXA Fall from bed, initial encounter; Z91.81 History of falling; M17.12 Unilateral primary osteoarthritis, left knee; B95.61 Methicillin susceptible Staphylococcus aureus infection as the cause of diseases classified elsewhere; B96.20 Unspecified Escherichia coli [E. coli] as the cause of diseases classified elsewhere; Z79.4 Long term (current) use of insulin